=== PATIENT | male | born 1975 | race Hispanic/Latino ===

== ENCOUNTER 2019-04-02 23:31 | Inpatient (IN) | payer MEDICAID, OTHER ==
[~2019-04-02] VITALS: Ht 182.9 cm; Wt 98.0 kg
[2019-04-02] MEDS ORDERED: ASPIRIN 81MG TAB.CHEW ONE (23:43)
[2019-04-02] MEDS ORDERED: NITROGLYCERIN 0.4 MG SL TAB SL ONE (23:54)
[2019-04-02] MEDS ORDERED: ONDANSETRON HCL 4 MG/2 ML VIAL ONE (23:57)
[2019-04-02] MEDS ORDERED: MORPHINE SULFATE 4 MG/1ML SYG ONE (23:57)
[2019-04-02 23:59] LABS: BASOPHILS % (AUTO) 0.8 % (0.0-5.0); EOSINOPHILS % (AUTO) 2.8 % (0.0-8.0); HEMATOCRIT 49.6 % (42-54); LYMPHOCYTES % (AUTO) 32.1 % (21.0-51.0); MEAN CORPUSCULAR HEMOGLOBIN 29.7 pg (27.0-33.0); MEAN CORPUSCULAR HGB CONC 35.6 g/dL (32.0-36.0); MEAN CORPUSCULAR VOLUME 83.5 fL (79-99); MONOCYTES % (AUTO) 7.2 % (3.0-13.0); NEUTROPHILS % (AUTO) 57.1 % (40.0-77.0); PLATELET COUNT (AUTO) 203 K/uL (130-400); RED BLOOD CELL COUNT(AUTO) 5.94 MIL/uL (4.50-6.20); RED CELL DISTRIBUTION WIDTH 13.3 % (11.0-15.5); WHITE BLOOD COUNT (AUTO) 8.8 K/uL (4.8-10.8)
[2019-04-02] MEDS ORDERED: NITROGLYCERIN 50 MG/D5% WATER 1 BOT ONE (23:59)
[2019-04-02] MEDS ORDERED: METOPROLOL TARTRATE 1 MG/ML 5ML VIAL IV ONE (23:59)
[2019-04-03] VITALS (43 sets, daily range): BP systolic 108–170; BP diastolic 55–104
[2019-04-03 00:02] LABS: CREATININE 1.2 mg/dL (0.5-1.5); POTASSIUM 3.6 mmol/L (3.5-5.1)
[2019-04-03 00:04] LABS: INR 0.99 (0.85-1.15); PARTIAL THROMBOPLASTIN TIME 25.4 SEC (26.3-35.5); PROTHROMBIN TIME 10.4 SEC (9.6-11.6)
[2019-04-03] MEDS ORDERED: LIDOCAINE HCL 2% 20ML ONE ×2 (00:08→01:02)
[2019-04-03] MEDS ORDERED: NITROGLYCERIN 5 MG/ML 10 ML VIAL IV ONE (00:08)
[2019-04-03] MEDS ORDERED: IOHEXOL 350 MG/ML 100ML INFUS..BTL IV ONE (00:08)
[2019-04-03] MEDS ORDERED: IOHEXOL-350 50ML VIAL IV ONE (00:08)
[2019-04-03] MEDS ORDERED: BIVALIRUDIN 250 MG/VIAL IV ONE (00:11)
[2019-04-03 00:12] LABS: ALBUMIN 3.9 g/dL (3.5-5.0); BILIRUBIN,TOTAL 0.4 mg/dL (0.2-1.0); TOTAL PROTEIN, SERUM 7.6 g/dL (6.0-8.3)
[2019-04-03 00:33] LABS: B-TYPE NATRIURETIC PEPTIDE 86 pg/mL (0-100)
[2019-04-03] MEDS ORDERED: HEPARIN SODIUM 1000UNIT/ML 10ML VIAL ONE (00:58)
[2019-04-03] MEDS ORDERED: SODIUM CHLORIDE 0.9% 1000ML 1,000 ML IV ONE (01:20)
[2019-04-03] MEDS: ENALAPRIL MALEATE 5 MG TAB PO SCH ×3 (01:30→22:09)
[2019-04-03] MEDS: METOPROLOL TARTRATE 50 MG TAB PO SCH ×4 (01:30→18:18)
[2019-04-03] MEDS ORDERED: FUROSEMIDE 10 MG/ML 2ML VIAL ONE (01:34)
--- NOTE | 2019-04-03 02:10 | NUR ---
PT WAS RECEIVED FROM RESEARCH ENVIRONMENTAL ENGINEER AND PT HAS IMPELLA IN PLACE TO RIGHT FEMORAL (GROIN) AREA AND HAS TRIDIL DRIP AT 100MCG AND WILL START CARDENE DRIP TO KEEP SBP LESS THAN 150. PT WAS ACCOMPANIED BY RESEARCH ENVIRONMENTAL ENGINEER STAFF AND NATA THE IMPELLA RETAIL SUPPORT ASSOCIATE. PT WAS ADVISED OF THE PLAN OF CARE AND WILL ALLOW FAMILY MEMBERS TO COME IN TO SEE PT AFTER PT IS ASSESSED AND IMPELLA IS PRIMED PER PROTOCOL.
[2019-04-03] MEDS ORDERED: HEPARIN SODIUM 5000UNIT/ML 1ML VIAL ONE ×2 (02:15→12:32)
[2019-04-03] MEDS ORDERED: DEXTROSE 5%-WATER 500 ML IV ONE (02:16)
[2019-04-03] MEDS ORDERED: NICARDIPINE IN NACL, ISO-OSM 200 ML IV ONE (02:31)
[2019-04-03] MEDS ORDERED: MIDAZOLAM HCL 1 MG/ML 2ML VIAL IVP ONE (02:45)
--- NOTE | 2019-04-03 03:00 | NUR ---
PT HAS BEEN MEDICATED WITH MORPHINE SULFATE 2 MG IV AND PT STATES PAIN WAS 3 BUT PRESSURE WITH PAIN, ASKED IF PAIN WAS WORST THAN BEFORE AND HE STATED NO BUT HAS NOT GONE AWAY OR COMFORTABLE.
[2019-04-03] MEDS ORDERED: MORPHINE SULFATE 2 MG/ML 1ML SYG IM PRN (03:15)
[2019-04-03] MEDS ORDERED: MORPHINE SULFATE 2 MG/ML 1ML SYG ONE (03:17)
[2019-04-03 03:29] LABS: HEMATOCRIT 47.1 % (42-54); MEAN CORPUSCULAR HEMOGLOBIN 29.6 pg (27.0-33.0); MEAN CORPUSCULAR HGB CONC 35.3 g/dL (32.0-36.0); MEAN CORPUSCULAR VOLUME 83.9 fL (79-99); PLATELET COUNT (AUTO) 208 K/uL (130-400); RED BLOOD CELL COUNT(AUTO) 5.62 MIL/uL (4.50-6.20); RED CELL DISTRIBUTION WIDTH 13.2 % (11.0-15.5); WHITE BLOOD COUNT (AUTO) 10.7 K/uL (4.8-10.8)
[2019-04-03] MEDS: HEPARIN 25000 UNITS/250 ML D5W 250 ML IV SCH ×2 (03:43→08:20)
[2019-04-03 03:54] LABS: HEMOGLOBIN A1C 10.1 % (4.0-6.0)
[2019-04-03 03:57] LABS: INR 1.03 (0.85-1.15); PARTIAL THROMBOPLASTIN TIME 51.6 SEC (26.3-35.5); PROTHROMBIN TIME 10.8 SEC (9.6-11.6)
[2019-04-03 04:00] LABS: B-TYPE NATRIURETIC PEPTIDE 61 pg/mL (0-100)
--- NOTE | 2019-04-03 04:00 | NUR ---
PT IS RESTING COMFORTABLY AND V/S HAVE BEEN IMPROVED AFTER CARDENE WAS ADDED. TRIDIL DRIP HAS BEEN REDUCED TO 50 MCGS. AT BEDSIDE AND OTHER FAMILY MEMBERS HAVE GONE HOME.
[2019-04-03 04:08] LABS: ALBUMIN 3.7 g/dL (3.5-5.0); BILIRUBIN,TOTAL 0.8 mg/dL (0.2-1.0); MAGNESIUM 2.5 mg/dL (1.80-2.40); POTASSIUM 3.8 mmol/L (3.5-5.1); TOTAL PROTEIN, SERUM 7.2 g/dL (6.0-8.3)
[2019-04-03 04:10] LABS: TROPONIN I 3.16 ng/mL (0.00-0.06)
[2019-04-03] MEDS: NICARDIPINE IN NACL, ISO-OSM 200 ML IV PRN ×3 (05:50→19:26)
[2019-04-03] MEDS: ASPIRIN 81MG TAB.CHEW PO SCH (09:14)
[2019-04-03] MEDS: NITROGLYCERIN 50 MG/D5% WATER 250 BOT IV PRN (10:34)
[2019-04-03] MEDS ORDERED: HEPARIN SODIUM 5000UNIT/ML 1ML VIAL IV SCH (12:30)
[2019-04-03 13:06] LABS: TROPONIN I 277.26 ng/mL (0.00-0.06)
--- NOTE | 2019-04-03 14:09 | NUR ---
DC PLAN VISITED WITH PATIENT. PATIENT LIVES WITH SPOUSE. INDEPENDENT ABLE TO PERFORM ADL'S. PATIENT HAS NO SERVICES OR DME'S. FEELS SAFE TO RETURN HOME. INTERESTED IN PROVIDER SERVICES WILL GO BACK IN GIVE HIM LOW INCOME INFORMATION. PATIENT DOES NOT QUALIFY FOR PROVIDERS AT THIS TIME. NOT 63 NO INSURANCE NO MEDICAID. Addendum: 04/03/19 at 1410 by KAYCE PAPPAS RN CM Amended: Links added.
[2019-04-03] MEDS ORDERED: DEXTROSE 50%-WATER 50 ML DISP.SYRIN IV PRN (18:15)
[2019-04-03] MEDS ORDERED: INSULIN HUMULIN R 100 UNIT/ML 3ML ONE (18:15)
[2019-04-03] MEDS ORDERED: INSULIN HUMULIN R 100 UNIT/ML 3ML SQ SCH (18:15)
[2019-04-03] MEDS ORDERED: GLUCAGON 1MG KIT 1 MG ML IM PRN (18:15)
[2019-04-03] MEDS ORDERED: INSULIN GLARGINE 100 UNITS/ML 10 ML VIAL SQ SCH (21:30)
[2019-04-03] MEDS ORDERED: ATORVASTATIN CALCIUM 10 MG TABLET PO SCH (22:03)
[2019-04-03 22:10] LABS: MAGNESIUM 1.8 mg/dL (1.80-2.40); POTASSIUM 3.8 mmol/L (3.5-5.1)
[2019-04-04] VITALS (30 sets, daily range): BP systolic 109–142; BP diastolic 54–83
[2019-04-04] MEDS: METOPROLOL TARTRATE 50 MG TAB PO SCH ×4 (00:07→18:22)
[2019-04-04] MEDS: MAGNESIUM 2GM PREMIX 50ML 50 ML IV PRN (00:07)
[2019-04-04] MEDS: NITROGLYCERIN 50 MG/D5% WATER 250 BOT IV PRN (00:08)
[2019-04-04] MEDS ORDERED: MORPHINE SULFATE 2 MG/ML 1ML SYG IV PRN (01:15)
[2019-04-04 05:54] LABS: BASOPHILS % (AUTO) 0.6 % (0.0-5.0); EOSINOPHILS % (AUTO) 0.4 % (0.0-8.0); HEMATOCRIT 42.2 % (42-54); LYMPHOCYTES % (AUTO) 11.6 % (21.0-51.0); MEAN CORPUSCULAR HEMOGLOBIN 29.5 pg (27.0-33.0); MEAN CORPUSCULAR HGB CONC 34.5 g/dL (32.0-36.0); MEAN CORPUSCULAR VOLUME 85.5 fL (79-99); MONOCYTES % (AUTO) 8.6 % (3.0-13.0); NEUTROPHILS % (AUTO) 78.8 % (40.0-77.0); PLATELET COUNT (AUTO) 180 K/uL (130-400); RED BLOOD CELL COUNT(AUTO) 4.93 MIL/uL (4.50-6.20); RED CELL DISTRIBUTION WIDTH 13.5 % (11.0-15.5); WHITE BLOOD COUNT (AUTO) 16.1 K/uL (4.8-10.8)
[2019-04-04 06:26] LABS: MAGNESIUM 2.1 mg/dL (1.80-2.40); POTASSIUM 4.2 mmol/L (3.5-5.1)
[2019-04-04 06:39] LABS: B-TYPE NATRIURETIC PEPTIDE 388 pg/mL (0-100)
[2019-04-04] MEDS: INSULIN LISPRO 100 UNIT/ML 3ML SQ SCH ×6 (06:43→21:00)
[2019-04-04 07:10] LABS: TROPONIN I 96.67 ng/mL (0.00-0.06)
[2019-04-04] MEDS ORDERED: INSULIN LISPRO 100 UNIT/ML 3ML SQ SCH (07:30)
[2019-04-04] MEDS: HEPARIN SODIUM 5000 UNIT/ML 25,000 UNIT in DEXTROSE 5%-WATER 500 ML IJ SCH (08:17)
[2019-04-04] MEDS: FUROSEMIDE 20 MG TABLET PO SCH ×2 (09:06→16:18)
[2019-04-04] MEDS: ASPIRIN 81MG TAB.CHEW PO SCH (09:06)
[2019-04-04] MEDS: ENALAPRIL MALEATE 5 MG TAB PO SCH ×2 (09:06→21:27)
[2019-04-04] MEDS: HEPARIN 25000 UNITS/250 ML D5W 250 ML IV SCH (14:30)
--- NOTE | 2019-04-04 14:52 | NUR ---
Impella with alarm: Impella Position Unkown. Impella position waveform flatline. Impella flow control decreased to P2 from P6. Impella alarm resolved. Flow increased back to P6. Dr. Arturo Arce and Hema (Impella Rep) notified. No need for echo to be done to check position. Continue to monitor patient. Placement signal with reading of 127/87 (103) mm/hg. Motor current with reading of 654/483 (569) mA. Impella flow at 1.8 L/min.
[2019-04-04] MEDS: FAMOTIDINE/PF 20 MG/2 ML VIAL IV SCH (21:27)
[2019-04-04] MEDS: ATORVASTATIN CALCIUM 40 MG TABLET PO SCH (21:28)
[2019-04-04] MEDS: INSULIN GLARGINE 100 UNITS/ML 10 ML VIAL SQ SCH (21:33)
[2019-04-05] VITALS (24 sets, daily range): BP systolic 120–148; BP diastolic 68–86
[2019-04-05] MEDS: METOPROLOL TARTRATE 50 MG TAB PO SCH ×4 (01:07→18:17)
[2019-04-05 03:58] LABS: BASOPHILS % (AUTO) 0.8 % (0.0-5.0); EOSINOPHILS % (AUTO) 0.7 % (0.0-8.0); HEMATOCRIT 40.7 % (42-54); LYMPHOCYTES % (AUTO) 19.1 % (21.0-51.0); MEAN CORPUSCULAR HEMOGLOBIN 29.2 pg (27.0-33.0); MEAN CORPUSCULAR HGB CONC 34.3 g/dL (32.0-36.0); MONOCYTES % (AUTO) 9.4 % (3.0-13.0); PLATELET COUNT (AUTO) 135 K/uL (130-400); RED CELL DISTRIBUTION WIDTH 13.6 % (11.0-15.5); WHITE BLOOD COUNT (AUTO) 11.2 K/uL (4.8-10.8)
[2019-04-05 04:34] LABS: B-TYPE NATRIURETIC PEPTIDE 76 pg/mL (0-100)
[2019-04-05 04:37] LABS: CREATININE 0.8 mg/dL (0.5-1.5); MAGNESIUM 1.8 mg/dL (1.80-2.40)
[2019-04-05 04:40] LABS: TROPONIN I 38.89 ng/mL (0.00-0.06)
[2019-04-05] MEDS: MAGNESIUM 2GM PREMIX 50ML 50 ML IV PRN (05:36)
[2019-04-05] MEDS: INSULIN LISPRO 100 UNIT/ML 3ML SQ SCH ×7 (06:27→20:25)
[2019-04-05] MEDS: ASPIRIN 81MG TAB.CHEW PO SCH (08:38)
[2019-04-05] MEDS: FUROSEMIDE 20 MG TABLET PO SCH ×2 (08:38→16:58)
[2019-04-05] MEDS: FAMOTIDINE/PF 20 MG/2 ML VIAL IV SCH ×2 (08:38→20:46)
[2019-04-05] MEDS: ENALAPRIL MALEATE 5 MG TAB PO SCH (09:41)
--- NOTE | 2019-04-05 10:40 | NUR ---
DR. Columba BABIN IN TO SEE PT. PLAN OF CARE DISCUSSED. NEW ORDERS RECEIVED AND NOTED.
[2019-04-05] MEDS: ENALAPRIL MALEATE 10 MG TABLET PO SCH ×2 (10:45→20:46)
[2019-04-05] MEDS: NITROGLYCERIN 1GM/1 INCH PACKET TD SCH ×2 (10:57→22:59)
[2019-04-05] MEDS: HEPARIN SODIUM 5000 UNIT/ML 25,000 UNIT in DEXTROSE 5%-WATER 500 ML IJ SCH (16:50)
[2019-04-05] MEDS: HEPARIN 25000 UNITS/250 ML D5W 250 ML IV SCH (16:57)
[2019-04-05] MEDS: ATORVASTATIN CALCIUM 40 MG TABLET PO SCH (20:47)
[2019-04-05] MEDS: INSULIN GLARGINE 100 UNITS/ML 10 ML VIAL SQ SCH (20:54)
[2019-04-06] VITALS (24 sets, daily range): BP systolic 120–160; BP diastolic 62–95
[2019-04-06] MEDS: METOPROLOL TARTRATE 50 MG TAB PO SCH ×5 (00:44→23:46)
[2019-04-06 03:52] LABS: HEMATOCRIT 41.7 % (42-54); MEAN CORPUSCULAR HEMOGLOBIN 29.1 pg (27.0-33.0); MEAN CORPUSCULAR HGB CONC 34.2 g/dL (32.0-36.0); MEAN CORPUSCULAR VOLUME 85.2 fL (79-99); PLATELET COUNT (AUTO) 118 K/uL (130-400); RED BLOOD CELL COUNT(AUTO) 4.89 MIL/uL (4.50-6.20); RED CELL DISTRIBUTION WIDTH 13.1 % (11.0-15.5); WHITE BLOOD COUNT (AUTO) 12.2 K/uL (4.8-10.8)
[2019-04-06 04:26] LABS: CREATININE 0.8 mg/dL (0.5-1.5); MAGNESIUM 1.9 mg/dL (1.80-2.40); POTASSIUM 4.1 mmol/L (3.5-5.1)
[2019-04-06 04:29] LABS: EOSINOPHILS % (MANUAL) 1 % (1-6); LYMPHOCYTES % (MANUAL) 18 % (22-44); MAN.DIFF COMMENT-IMPRESSION MANUAL DIFFERENTIAL; MONOCYTES % (MANUAL) 8 % (2-9); SEGMENTED NEUTROPHILS % 73 % (40-70)
[2019-04-06 04:43] LABS: B-TYPE NATRIURETIC PEPTIDE 132 pg/mL (0-100)
[2019-04-06 05:01] LABS: TROPONIN I 28.87 ng/mL (0.00-0.06)
[2019-04-06] MEDS: INSULIN LISPRO 100 UNIT/ML 3ML SQ SCH ×7 (07:30→21:00)
--- NOTE | 2019-04-06 07:30 | NUR ---
DR. Columba BABIN IN TO SEE PT. PLAN OF CARE DISCUSSED. PT CONTINUES ON IMPELLA P6 LEVEL WITH FLOW 1.7 L/MIN. SITE TO RIGHT FEMORAL INTACT. NO HEMATOMA NOTED. PEDAL PULSES STRONG AND PALPABLE. PT OCCASIONALLY MOVING REMINDED OF IMPORTANCE OF REMAINING FLAT. VS NOTED ON COMPUTER. CONTINUES ON HEPARIN DRIP PER PROTOCOL. VS NOTED IN EMR. CONTINUE TO MONITOR PT.
[2019-04-06] MEDS: FAMOTIDINE/PF 20 MG/2 ML VIAL IV SCH ×2 (08:28→21:15)
[2019-04-06] MEDS: FUROSEMIDE 20 MG TABLET PO SCH ×2 (08:28→16:47)
[2019-04-06] MEDS: ASPIRIN 81MG TAB.CHEW PO SCH (08:28)
--- NOTE | 2019-04-06 10:50 | NUR ---
PT COUGHED UP ABOUT 10 ML OF BRIGHT RED BLOOD, BLOOD NOTED ON RIGHT NOSTRIL. OXYGEN REMOVED, PRESSURE APPLIED. DR. Chun BABIN CALLED AND NOTIFIED. HEPARIN DRIP DECREASED TO 1200 UNITS/HR ORDERED.
--- NOTE | 2019-04-06 11:12 | NUR ---
DR. AVILES IN TO SEE PT. PLAN OF CARE DISCUSSED. PLAN FOR SURGERY SUNDAY BY DR. MCCLENDON. PT IN AGREEMENT. ALL QUESTIONS ANSWERED.
[2019-04-06] MEDS: ENALAPRIL MALEATE 10 MG TABLET PO SCH ×2 (11:33→20:57)
[2019-04-06] MEDS: NITROGLYCERIN 1GM/1 INCH PACKET TD SCH ×2 (11:33→21:48)
[2019-04-06] MEDS: HEPARIN 25000 UNITS/250 ML D5W 250 ML IV SCH (13:00)
[2019-04-06 17:02] LABS: ABG BASE EXCESS 2.2 mmol/L (-2.0-3.0); ABG HCO3 26.1 mmol/L (21.0-28.0); ABG OXYGEN SATURATION 95.5 % (95.0-99.0); ABG PCO2 39 mmHg (35-48)
[2019-04-06] MEDS: ATORVASTATIN CALCIUM 40 MG TABLET PO SCH (21:15)
[2019-04-06] MEDS: INSULIN GLARGINE 100 UNITS/ML 10 ML VIAL SQ SCH (21:50)
[2019-04-07] VITALS (30 sets, daily range): BP systolic 100–213; BP diastolic 60–95
[2019-04-07 04:06] LABS: BASOPHILS % (AUTO) 0.5 % (0.0-5.0); EOSINOPHILS % (AUTO) 1.1 % (0.0-8.0); HEMATOCRIT 41.4 % (42-54); LYMPHOCYTES % (AUTO) 13.1 % (21.0-51.0); MEAN CORPUSCULAR HEMOGLOBIN 29.1 pg (27.0-33.0); MEAN CORPUSCULAR HGB CONC 34.7 g/dL (32.0-36.0); MEAN CORPUSCULAR VOLUME 83.8 fL (79-99); MONOCYTES % (AUTO) 10.1 % (3.0-13.0); NEUTROPHILS % (AUTO) 75.2 % (40.0-77.0); NUCLEATED RED BLOOD CELLS 0.1 % (0.0-0.19); PLATELET COUNT (AUTO) 107 K/uL (130-400); RED BLOOD CELL COUNT(AUTO) 4.94 MIL/uL (4.50-6.20); RED CELL DISTRIBUTION WIDTH 13.3 % (11.0-15.5); WHITE BLOOD COUNT (AUTO) 9.9 K/uL (4.8-10.8)
[2019-04-07 04:45] LABS: CREATININE 0.7 mg/dL (0.5-1.5); MAGNESIUM 1.7 mg/dL (1.80-2.40)
[2019-04-07 04:49] LABS: TROPONIN I 21.51 ng/mL (0.00-0.06)
[2019-04-07 05:01] LABS: B-TYPE NATRIURETIC PEPTIDE 233 pg/mL (0-100)
[2019-04-07] MEDS: MAGNESIUM 2GM PREMIX 50ML 50 ML IV PRN ×2 (05:47→20:12)
[2019-04-07] MEDS: METOPROLOL TARTRATE 50 MG TAB PO SCH ×2 (05:48→12:30)
[2019-04-07] MEDS ORDERED: POTASSIUM CHLORIDE 10% ELIXIR 20 MEQ/15 ML UDCUP PO PRN (06:00)
[2019-04-07] MEDS ORDERED: LIDOCAINE HCL-MPF 1% 2ML VIAL IV PRN (06:00)
[2019-04-07] MEDS ORDERED: LIDOCAINE HCL-MPF 1% 2ML VIAL ONE (06:01)
[2019-04-07] MEDS ORDERED: POTASSIUM CHLORIDE 20MEQ/100ML 100 ML IV ONE (06:03)
[2019-04-07] MEDS: INSULIN LISPRO 100 UNIT/ML 3ML SQ SCH ×4 (07:15→10:41)
--- NOTE | 2019-04-07 08:00 | NUR ---
AM NOTE Awake, alert, oriented x3. Denies chest pain. 13 Fr. Impella device to right femoral, no hematoma noted to site, refer to flowsheet. Heparin infusions stopped including purge fluid as ordered by MD. NPO for pending CABG today, instructed to remain bedrest, verbalized understanding. Sinus rhythm in 70s. Side rials up. Call braga within reach.
[2019-04-07] MEDS: FAMOTIDINE/PF 20 MG/2 ML VIAL IV SCH ×2 (08:07→20:28)
[2019-04-07] MEDS: POTASSIUM CHLORIDE 20MEQ/100ML 100 ML IV PRN ×4 (08:07→23:20)
[2019-04-07] MEDS: ENALAPRIL MALEATE 10 MG TABLET PO SCH (08:08)
[2019-04-07] MEDS: ASPIRIN 81MG TAB.CHEW PO SCH (08:08)
[2019-04-07] MEDS: FUROSEMIDE 20 MG TABLET PO SCH (08:08)
[2019-04-07] MEDS ORDERED: DEXTROSE 5%-WATER 500 ML IV ONE (09:59)
[2019-04-07 10:21] LABS: ABG BASE EXCESS 3.1 mmol/L (-2.0-3.0); ABG HCO3 26.5 mmol/L (21.0-28.0); ABG OXYGEN SATURATION 96.4 % (95.0-99.0); ABG PCO2 37 mmHg (35-48)
[2019-04-07] MEDS: NITROGLYCERIN 1GM/1 INCH PACKET TD SCH (10:21)
[2019-04-07] MEDS ORDERED: OCTYL 2-CYANOACRYLATE 1 EACH TP ONE (12:15)
[2019-04-07] MEDS ORDERED: EPINEPHRINE 1 MG/ML 30ML VIAL IJ ONE (12:15)
[2019-04-07] MEDS ORDERED: PAPAVERINE HCL 30 MG/ML 2ML VIAL ONE (12:15)
[2019-04-07] MEDS ORDERED: NITROGLYCERIN 50 MG/D5% WATER 1 BOT ONE (12:16)
[2019-04-07] MEDS ORDERED: BACITRACIN 50,000 UNIT VIAL ONE (12:16)
[2019-04-07] MEDS ORDERED: CEFAZOLIN SODIUM 1 GM VIAL IVP PRN (13:00)
[2019-04-07 13:09] LABS: POTASSIUM 4.4 mmol/L (3.5-5.1)
[2019-04-07] MEDS ORDERED: AMINOCAPROIC ACID 250 MG/ML 20 ML VIAL IV ONE (14:18)
[2019-04-07] MEDS ORDERED: HEPARIN SODIUM 1000UNIT/ML 10ML VIAL ONE (14:18)
[2019-04-07] MEDS ORDERED: LIDOCAINE PF 2% 5ML ABBOJECT ONE ×2 (14:18)
[2019-04-07] MEDS ORDERED: PROPOFOL 10 MG/ML 20ML VIAL IV ONE (14:18)
[2019-04-07] MEDS ORDERED: PROTAMINE SULFATE 10 MG/ML 25ML VIAL IV ONE (14:18)
[2019-04-07] MEDS ORDERED: FENTANYL CITRATE PF 50 MCG/1 ML 20ML VIAL IJ ONE (14:18)
[2019-04-07] MEDS ORDERED: EPINEPHRINE 1 MG/ML AMPULE ONE (14:18)
[2019-04-07] MEDS ORDERED: NOREPINEPHRINE BITARTRATE 1 MG/1 ML ML IV ONE (14:18)
[2019-04-07] MEDS ORDERED: ROCURONIUM 10MG/1ML SYR 10 MG/ML ML ONE ×2 (14:18→17:59)
[2019-04-07] MEDS ORDERED: MIDAZOLAM HCL 1 MG/ML 5ML VIAL ONE (14:18)
[2019-04-07] MEDS ORDERED: ESMOLOL HCL 10 MG/ML 10 ML VIAL ONE ×2 (14:18→14:19)
[2019-04-07] MEDS ORDERED: ETOMIDATE 2 MG/ML 10 ML VIAL ONE (14:19)
[2019-04-07] MEDS ORDERED: AMIODARONE HCL 50 MG/ML 3 ML VIAL ONE (14:19)
[2019-04-07] MEDS ORDERED: GLYCOPYRROLATE 1 MG/5 ML SYRINGE ONE (14:22)
--- NOTE | 2019-04-07 14:55 | NUR ---
OR Pt taken to OR by BIN Rodriguez, BIN Hairston, and Sr. Harding. Ancef IV manager talent acquisition given to BIN Rodriguez. Pt in no distress. All belongings given to pt at bedside.
[2019-04-07 15:47] LABS: ABG BASE EXCESS 0.9 mmol/L (-2.0-3.0); ABG HCO3 24.8 mmol/L (21.0-28.0); ABG OXYGEN SATURATION 99.4 % (95.0-99.0); ABG PCO2 37 mmHg (35-48)
[2019-04-07] MEDS ORDERED: SODIUM BICARB 50MEQ 50ML VIAL ONE (16:18)
[2019-04-07] MEDS ORDERED: SODIUM CHLORIDE 0.9% 500ML 500 ML IV SCH (16:50)
[2019-04-07] MEDS ORDERED: TRAMADOL HCL 50 MG TABLET PO PRN ×2 (17:00)
[2019-04-07] MEDS ORDERED: AMINOCAPROIC ACID 15,000 MG in SODIUM CHLORIDE 0.9% 250 ML IV SCH (17:00)
[2019-04-07] MEDS ORDERED: MORPHINE SULFATE 4 MG/1ML SYG IV PRN (17:00)
[2019-04-07] MEDS ORDERED: ALBUMIN (HUMAN) 5% 250 ML IV PRN (17:00)
[2019-04-07] MEDS ORDERED: ACETAMINOPHEN 325 MG TAB PO PRN ×2 (17:00)
[2019-04-07] MEDS ORDERED: EPINEPHRINE 8 MG in DEXTROSE 5%-WATER 250 ML IV PRN (17:00)
[2019-04-07] MEDS ORDERED: POTASSIUM PHOS 15 mMOL+NS250ML 250 ML IV PRN (17:00)
[2019-04-07] MEDS ORDERED: ACETAMINOPHEN 650 MG SUPPOSITORY RC PRN (17:00)
[2019-04-07] MEDS ORDERED: DEXTROSE 50%-WATER 50 ML DISP.SYRIN IV PRN (17:00)
[2019-04-07] MEDS ORDERED: SODIUM CHLORIDE 0.9% 250 ML IV PRN (17:00)
[2019-04-07] MEDS ORDERED: ONDANSETRON HCL 4 MG/2 ML VIAL IV PRN (17:00)
[2019-04-07] MEDS ORDERED: NITROGLYCERIN 50 MG/D5% WATER 250 BOT IV SCH (17:00)
[2019-04-07] MEDS ORDERED: SODIUM CHLORIDE 0.9% 1000ML 1,000 ML IV SCH (17:00)
[2019-04-07] MEDS ORDERED: SODIUM CHLORIDE 0.9% 10 ML VIAL IVP PRN (17:00)
[2019-04-07] MEDS ORDERED: INSULIN REGULAR, HUMAN 3ML 100 UNIT in SODIUM CHLORIDE 0.9% 99 ML IV SCH ×2 (17:00)
[2019-04-07] MEDS ORDERED: MORPHINE SULFATE 2 MG/ML 1ML SYG IV PRN (17:00)
[2019-04-07] MEDS ORDERED: NOREPINEPHRINE 4MG/NS 250ML 250 ML IV PRN (17:00)
[2019-04-07] MEDS ORDERED: GLUCAGON 1MG KIT 1 MG ML IM PRN (17:00)
[2019-04-07 17:18] LABS: ABG BASE EXCESS 0.5 mmol/L (-2.0-3.0); ABG HCO3 24.3 mmol/L (21.0-28.0); ABG PCO2 37 mmHg (35-48)
[2019-04-07 17:57] LABS: ABG BASE EXCESS -4.6 mmol/L (-2.0-3.0); ABG HCO3 20.1 mmol/L (21.0-28.0); ABG OXYGEN SATURATION 98.8 % (95.0-99.0); ABG PCO2 36 mmHg (35-48)
--- NOTE | 2019-04-07 18:30 | NUR ---
POST OP Received pt immediately post op to room 212. Remains sedated/intubated. Vent settings as recorded. VS/hemodynamics as recorded. Received pt on IV levophed gtt @3mcg/min, epinephrine gtt @0.05mcg/kg/min, NTG gtt @5mcg/min, amicar @50ml/hr. IV levophed gtt turned off by shortly after arrival to CVR. IV NTG gtt titrated to 10mcg/min. Right IJ CVP line in use. Left radial arterial line patent with acceptable waveform. Sternal drsg clean, dry. Abd soft - absent bowel sounds. CT's x2 patent - sanguineous drainage - Y connected to single atrium. No evidence of air leak. CT's to 20cm suction. Right femoral Impella catheter remains in place - refer to separate flow sheet for required documentation. Right groin without bleeding, oozing or hematoma. Pedal pulses are palpable. KAYODE bandage/surgical drsg to LLE. F/C patent - clear yellow urine. in to see pt at approximately 1845 - order received to wean Impella flow rate as tolerated by pt. Impella flow now at P4. Will observe pt tolerance. Care of pt endorsed to 7P RN.
[2019-04-07 19:31] LABS: ABG HCO3 18.8 mmol/L (21.0-28.0); ABG OXYGEN SATURATION 93.3 % (95.0-99.0); ABG PCO2 35 mmHg (35-48)
[2019-04-07] MEDS: SODIUM BICARB 50MEQ 50ML VIAL IV PRN ×3 (19:34→19:36)
[2019-04-07] MEDS: PROPOFOL 1000 MG/100 ML 100 ML IV PRN ×2 (19:45→23:59)
[2019-04-07 19:52] LABS: HEMATOCRIT 40.3 % (42-54); MEAN CORPUSCULAR HEMOGLOBIN 29.1 pg (27.0-33.0); MEAN CORPUSCULAR HGB CONC 33.9 g/dL (32.0-36.0); MEAN CORPUSCULAR VOLUME 85.8 fL (79-99); PLATELET COUNT (AUTO) 125 K/uL (130-400); RED CELL DISTRIBUTION WIDTH 13.3 % (11.0-15.5); WHITE BLOOD COUNT (AUTO) 19.4 K/uL (4.8-10.8)
[2019-04-07 20:01] LABS: CREATININE 0.9 mg/dL (0.5-1.5); INR 1.15 (0.85-1.15); MAGNESIUM 1.5 mg/dL (1.80-2.40); PARTIAL THROMBOPLASTIN TIME 24.3 SEC (26.3-35.5); PHOSPHORUS 4.3 mg/dL (2.5-4.9); POTASSIUM 3.3 mmol/L (3.5-5.1)
[2019-04-07 20:50] LABS: ABG HCO3 23.9 mmol/L (21.0-28.0); ABG OXYGEN SATURATION 97.6 % (95.0-99.0); ABG PCO2 37 mmHg (35-48)
[2019-04-07] MEDS: CALCIUM GLUCONATE 1 GM in SODIUM CHLORIDE 0.9% 50 ML IV PRN ×2 (21:48→23:20)
[2019-04-07] MEDS: CEFAZOLIN SODIUM 1 GM VIAL IV SCH (22:05)
[2019-04-07 23:17] LABS: ABG BASE EXCESS 1.5 mmol/L (-2.0-3.0); ABG OXYGEN SATURATION 98.1 % (95.0-99.0); ABG PCO2 40 mmHg (35-48)
[2019-04-08] VITALS (43 sets, daily range): BP systolic 96–170; BP diastolic 62–87
[2019-04-08] MEDS: POTASSIUM CHLORIDE 20MEQ/100ML 100 ML IV PRN ×2 (00:18→02:09)
[2019-04-08 02:07] LABS: ABG BASE EXCESS 1.4 mmol/L (-2.0-3.0); ABG HCO3 24.9 mmol/L (21.0-28.0); ABG PCO2 36 mmHg (35-48)
[2019-04-08] MEDS ORDERED: CALCIUM GLUCONATE 1 GM/10 ML VIAL IV ONE ×2 (02:09→04:58)
[2019-04-08] MEDS: CALCIUM GLUCONATE 1 GM in SODIUM CHLORIDE 0.9% 50 ML IV PRN ×2 (02:09→05:00)
[2019-04-08 03:27] LABS: ABG BASE EXCESS 3.2 mmol/L (-2.0-3.0); ABG HCO3 27.6 mmol/L (21.0-28.0); ABG OXYGEN SATURATION 98.3 % (95.0-99.0); ABG PCO2 42 mmHg (35-48)
--- NOTE | 2019-04-08 03:35 | NUR ---
EXTUBATION PT TOLERATED WEANING WELL ABG WITH PARAMETERS. PT WITH GOOD HAND LADIES SUIT OPERATOR AND ABLE TO LIFT HEAD AND HOLD. PT ABLE TO ACHIEVE NIF -34.7 AND VC 1269. PT EXTUBATED AND PLACED ON 40% CAFM PT EDUCATED TO TAKE SLOW DEEP BREATHS. WILL CONTINUE TO MONITOR.
--- NOTE | 2019-04-08 03:52 | NUR ---
EPI EPI WEANED OFF AT THIS TIME ASBP 170'S. NITRO INCREASED TO 20MCG/MIN WILL CONTINUE TO MONITOR.
[2019-04-08 04:26] LABS: HEMATOCRIT 38.4 % (42-54); MEAN CORPUSCULAR HEMOGLOBIN 29.7 pg (27.0-33.0); MEAN CORPUSCULAR VOLUME 84.9 fL (79-99); PLATELET COUNT (AUTO) 101 K/uL (130-400); RED BLOOD CELL COUNT(AUTO) 4.52 MIL/uL (4.50-6.20); RED CELL DISTRIBUTION WIDTH 13.1 % (11.0-15.5); WHITE BLOOD COUNT (AUTO) 13.1 K/uL (4.8-10.8)
[2019-04-08 04:44] LABS: ABG BASE EXCESS 3.7 mmol/L (-2.0-3.0); ABG HCO3 28.3 mmol/L (21.0-28.0); ABG OXYGEN SATURATION 98.8 % (95.0-99.0); ABG PCO2 42 mmHg (35-48)
[2019-04-08 04:46] LABS: INR 1.14 (0.85-1.15); PARTIAL THROMBOPLASTIN TIME 27.5 SEC (26.3-35.5); PROTHROMBIN TIME 11.9 SEC (9.6-11.6)
[2019-04-08 04:55] LABS: CREATININE 0.8 mg/dL (0.5-1.5); MAGNESIUM 1.8 mg/dL (1.80-2.40); PHOSPHORUS 2.6 mg/dL (2.5-4.9); POTASSIUM 4.1 mmol/L (3.5-5.1)
[2019-04-08] MEDS: MAGNESIUM 2GM PREMIX 50ML 50 ML IV PRN (05:00)
[2019-04-08] MEDS ORDERED: PHARMACY COMMUNICATION MISC SCH (05:15)
[2019-04-08] MEDS: CEFAZOLIN SODIUM 1 GM VIAL IV SCH ×2 (05:46→15:46)
--- NOTE | 2019-04-08 06:50 | NUR ---
ASSESSMENT Arousable with verbal stimulation. Oriented and appropriate. SR/ST on tele. VS as recorded. IV NTG gtt @15mcg/min. Denies acute chest pain or pressure. Reports incisional pain at a tolerable level. Right IJ CVP line in ues. Radial arterial line patent. Placed on NC O2 - will monitor pt tolerance. Diminished bibasilar breath sounds. Supine position maintained secondary to Impella catheter to RFA. Right groin healthy without evidence of bleeding/oozing or hematoma. Pedal pulses are palpable. SCD's in use to BLE's. CT's patent. Abd soft. Denies nausea. Assessment completed/recorded.
--- NOTE | 2019-04-08 07:52 | NUR ---
STATUS Sleeping soundly. Respirations are even, non-labored. ST on tele. VS maintained. No evidence of distress.
--- NOTE | 2019-04-08 09:23 | NUR ---
PT CARE Impella catheter removed by . Manual pressure applied to site by caregiver x45min. Hemostasis obtained. No bleeding, oozing or hematoma noted after pressure applied. Pressure drsg applied to site. Pedal pulses remain palpable. Pt denies pain to site. BLE's warm to touch. Pt repositioned for comfort. HOB @10-degrees. Pt aware of ongoing activity restrictions post removal of Impella catheter. No complaints voiced by pt.
--- NOTE | 2019-04-08 10:59 | NUR ---
TRANSFER Transferred by bed to room 210. Needed items placed within pt's reach.
[2019-04-08] MEDS: FAMOTIDINE/PF 20 MG/2 ML VIAL IV SCH ×2 (12:38→20:11)
--- NOTE | 2019-04-08 15:06 | NUR ---
11:00 Hold PT EVALUATION PER BIN FRAZIER Addendum: 04/08/19 at 1510 by KALEE CHEN PT PT Amended: Links added.
--- NOTE | 2019-04-08 17:24 | NUR ---
DC PLAN PATIENT S/P CABG 04/07. PLAN TO DC HOME. Addendum: 04/08/19 at 1725 by KAYCE PAPPAS RN CM Amended: Links added.
[2019-04-08] MEDS ORDERED: METOPROLOL TARTRATE 25 MG TAB PO SCH (17:30)
[2019-04-08] MEDS ORDERED: METOPROLOL TARTRATE 25 MG TAB ONE (17:51)
--- NOTE | 2019-04-08 18:51 | NUR ---
Nutrition Intervention: Nutrition screen based on LOS x 6 days. Pt. S/P CABG(04/07/19). Pt. on Clear Liquid No Conc Sweets CVR diet. Pt. reports only wants to drink water; states not able to tolerate other liquids at this time. Labs reviewed(Alb 3.7, HgbA1c 10.1%). LBM: 04/07/19. Attempted to educate pt. on diet but pt. stated not up for education at this time. Recommendations: 1) Rec. advance diet as tolerated to 75gm CCD Heart Healthy. 2) Continue to monitor pt's nutritional status. 3) Consult RD as nutrition concerns arise. Addendum: 04/08/19 at [address] Amended: Links added.
--- NOTE | 2019-04-08 19:14 | NUR ---
HAND OFF REPORT GIVEN TO NANCY STEWARD Addendum: 04/08/19 at 1917 by BRIDGETTE WIN RN RN SUMMARY OF CARE- I ASSUMED CARE OF PT THIS AFTERNOON FROM CVR. PT WAS SEEN BY DR MCCLENDON THIS AM. IMPELLA CATH REMOVED FROM RT GROIN- NO HEMATOMA/BLEEDING. NTG DRIP WEANING IN PROGRESS. DR BABIN ROUNDED AND GAVE ORDERS. DR MCCLENDON WAS INFORMED OF DR BABIN ORDERS AND HE CHANGED DOSING ON METOPROLOL. PT REMAINED STABLE AND HAD NO ACUTE ISSUES ENCOUNTERED
[2019-04-08] MEDS: ATORVASTATIN CALCIUM 20 MG TABLET PO SCH (20:11)
[2019-04-09] VITALS (69 sets, daily range): BP systolic 102–175; BP diastolic 57–100
[2019-04-09] MEDS ORDERED: METOPROLOL TARTRATE 25 MG TAB ONE (00:21)
[2019-04-09 04:26] LABS: CREATININE 0.7 mg/dL (0.5-1.5); POTASSIUM 4.1 mmol/L (3.5-5.1)
[2019-04-09 04:47] LABS: HEMATOCRIT 34.5 % (42-54); MEAN CORPUSCULAR HEMOGLOBIN 28.8 pg (27.0-33.0); MEAN CORPUSCULAR VOLUME 84.6 fL (79-99); PLATELET COUNT (AUTO) 122 K/uL (130-400); RED BLOOD CELL COUNT(AUTO) 4.07 MIL/uL (4.50-6.20); RED CELL DISTRIBUTION WIDTH 12.9 % (11.0-15.5); WHITE BLOOD COUNT (AUTO) 14.5 K/uL (4.8-10.8)
[2019-04-09] MEDS: POTASSIUM CHLORIDE 20MEQ/100ML 100 ML IV PRN (06:17)
[2019-04-09] MEDS: FAMOTIDINE/PF 20 MG/2 ML VIAL IV SCH ×2 (08:18→20:17)
[2019-04-09] MEDS: ASPIRIN 325MG EC TAB 325 MG TABLET.DR PO SCH (08:18)
[2019-04-09] MEDS ORDERED: METOPROLOL TARTRATE 25 MG TAB PO SCH ×2 (09:00→21:00)
[2019-04-09] MEDS ORDERED: FUROSEMIDE 10 MG/ML 4ML VIAL IV SCH (13:01)
--- NOTE | 2019-04-09 15:33 | NUR ---
RD Follow Up Pt tolerance to CVR-Clear Liquid improving compared to yesterday. Pt reports no appetite but is able to consume water okay, however, feels full with gelatin. Pt states will keep trying to eat more. RD provided Heart Healthy Diet and Diabetes Mellitus Diet education. RD reviewed reference materials with Pt and Pt's . RD discussed Pt "problem" foods/beverages and conducted motivational interviewing to encourage Pt to adhere to healthier alternatives. Pt and SO with questions. RD answered all questions. Pt and verbalized understanding. RD encouraged to notify as additional questions or concerns arise. Pt LBM 04/07/19. Pt monitored labs: Glu 149, Ca 8.3, Hgb 11.7 (declining trend), Hct 34.5. Recommend to advance diet as tolerated to Heart healthy, 75gm CCD. RD to continue to monitor. Please notify RD as nutritional concerns arise. Thank you. Addendum: 04/09/19 at [address] Amended: Links added.
--- NOTE | 2019-04-09 15:40 | NUR ---
Diet Education RD provided Heart Healthy Diet and Diabetes Mellitus Diet education. RD reviewed reference materials with Pt and Pt's . RD discussed Pt "problem" foods/beverages and conducted motivational interviewing to encourage Pt to adhere to healthier alternatives. Pt and SO with questions. RD answered all questions. Pt and verbalized understanding. RD encouraged to notify as additional questions or concerns arise. Addendum: 04/09/19 at [address] Amended: Links added.
[2019-04-09] MEDS: FUROSEMIDE 20 MG TABLET PO SCH (17:32)
[2019-04-09] MEDS: ATORVASTATIN CALCIUM 20 MG TABLET PO SCH (20:18)
[2019-04-09] MEDS ORDERED: AMIODARONE HCL 200 MG TABLET PO SCH (21:00)
[2019-04-10] VITALS (26 sets, daily range): BP systolic 90–177; BP diastolic 38–100
[2019-04-10 04:48] LABS: HEMATOCRIT 31.9 % (42-54); MEAN CORPUSCULAR HEMOGLOBIN 29.8 pg (27.0-33.0); MEAN CORPUSCULAR VOLUME 85.1 fL (79-99); PLATELET COUNT (AUTO) 137 K/uL (130-400); RED BLOOD CELL COUNT(AUTO) 3.74 MIL/uL (4.50-6.20); RED CELL DISTRIBUTION WIDTH 12.8 % (11.0-15.5); WHITE BLOOD COUNT (AUTO) 10.6 K/uL (4.8-10.8)
[2019-04-10 04:57] LABS: CREATININE 0.7 mg/dL (0.5-1.5); POTASSIUM 3.7 mmol/L (3.5-5.1)
[2019-04-10] MEDS: POTASSIUM CHLORIDE 20MEQ/100ML 100 ML IV PRN (05:31)
--- NOTE | 2019-04-10 06:29 | NUR ---
Potassium level 3.7. Replacement in progress. Pt up in cardiac chair after bath. No c/o pain, sob.
[2019-04-10] MEDS: ASPIRIN 325MG EC TAB 325 MG TABLET.DR PO SCH (08:15)
[2019-04-10] MEDS: FUROSEMIDE 20 MG TABLET PO SCH ×2 (08:15→16:01)
[2019-04-10] MEDS: AMIODARONE HCL 200 MG TABLET PO SCH (08:16)
[2019-04-10] MEDS: CLOPIDOGREL BISULFATE 75 MG TAB PO SCH (08:16)
[2019-04-10] MEDS: METOPROLOL TARTRATE 25 MG TAB PO SCH ×2 (08:16→22:15)
[2019-04-10] MEDS: LISINOPRIL 5 MG TABLET PO SCH (08:16)
[2019-04-10] MEDS: FAMOTIDINE/PF 20 MG/2 ML VIAL IV SCH ×2 (08:16→22:15)
[2019-04-10] MEDS: INSULIN HUMULIN R 100 UNIT/ML 3ML SQ SCH ×3 (11:30→20:48)
[2019-04-10] MEDS: ATORVASTATIN CALCIUM 20 MG TABLET PO SCH (22:15)
[2019-04-11] VITALS (7 sets, daily range): BP systolic 111–144; BP diastolic 72–89
[2019-04-11 05:11] LABS: HEMATOCRIT 31.9 % (42-54); MEAN CORPUSCULAR HEMOGLOBIN 29.7 pg (27.0-33.0); MEAN CORPUSCULAR HGB CONC 35.1 g/dL (32.0-36.0); MEAN CORPUSCULAR VOLUME 84.7 fL (79-99); PLATELET COUNT (AUTO) 167 K/uL (130-400); RED BLOOD CELL COUNT(AUTO) 3.76 MIL/uL (4.50-6.20); RED CELL DISTRIBUTION WIDTH 13.3 % (11.0-15.5); WHITE BLOOD COUNT (AUTO) 8.1 K/uL (4.8-10.8)
[2019-04-11 06:06] LABS: CREATININE 0.8 mg/dL (0.5-1.5); POTASSIUM 3.9 mmol/L (3.5-5.1)
[2019-04-11] MEDS: INSULIN HUMULIN R 100 UNIT/ML 3ML SQ SCH ×4 (06:16→21:00)
[2019-04-11] MEDS: POTASSIUM CHLORIDE 20MEQ/100ML 100 ML IV PRN (06:47)
--- NOTE | 2019-04-11 08:15 | NUR ---
CHEST TUBES X 2 REMOVED INTACT-SUTURES TIED AND COVERED WITH OPSITE 4X4/VASELINE GAUZE. GREENBERG CATH REMOVED INTACT. PLAN OF CARE DISCUSSED WITH PATIENT. NO ACUTE DISTRESS NOTED
[2019-04-11] MEDS: LISINOPRIL 5 MG TABLET PO SCH (09:31)
[2019-04-11] MEDS: ASPIRIN 325MG EC TAB 325 MG TABLET.DR PO SCH (09:31)
[2019-04-11] MEDS: CLOPIDOGREL BISULFATE 75 MG TAB PO SCH (09:32)
[2019-04-11] MEDS: AMIODARONE HCL 200 MG TABLET PO SCH (09:32)
[2019-04-11] MEDS: METOPROLOL TARTRATE 25 MG TAB PO SCH ×2 (09:32→20:35)
[2019-04-11] MEDS: FUROSEMIDE 20 MG TABLET PO SCH ×2 (09:32→16:43)
--- NOTE | 2019-04-11 10:00 | NUR ---
RT JUGULAR CORDIS REMOVED INTACT- OP SITE DRESSING APPLIED
--- NOTE | 2019-04-11 10:56 | NUR ---
DIABETES EDUCTION- PRINTED EXITCARE PACKET GIVEN TO PT. VERBAL INSTRUCTION ALSO GIVEN . VERBALIZES UNDERSTANDING
--- NOTE | 2019-04-11 15:00 | NUR ---
cm note met with patient and discussed dc planning, has who will be assisting him at dc. no dc needs, provided him with rx assist info , and low income clinics in the area, [facility] is working with [facility] and should be getting medicaid. dc plan is to home. to assist
--- NOTE | 2019-04-11 16:54 | NUR ---
HAND OFF REPORT GIVEN TO EBEN STEWARD. PT TRANSFERRED TO ROOM 204
[2019-04-11] MEDS: FAMOTIDINE 20MG TAB 20 MG TAB PO SCH (20:35)
[2019-04-11] MEDS: ATORVASTATIN CALCIUM 20 MG TABLET PO SCH (20:35)
[2019-04-12 00:30] VITALS: BP 121/77
[2019-04-12 04:21] LABS: HEMATOCRIT 33.1 % (42-54); MEAN CORPUSCULAR HEMOGLOBIN 30.2 pg (27.0-33.0); MEAN CORPUSCULAR HGB CONC 35.9 g/dL (32.0-36.0); PLATELET COUNT (AUTO) 243 K/uL (130-400); RED BLOOD CELL COUNT(AUTO) 3.94 MIL/uL (4.50-6.20); RED CELL DISTRIBUTION WIDTH 13.1 % (11.0-15.5); WHITE BLOOD COUNT (AUTO) 9.6 K/uL (4.8-10.8)
[2019-04-12 04:30] LABS: CREATININE 0.9 mg/dL (0.5-1.5); POTASSIUM 3.3 mmol/L (3.5-5.1)
[2019-04-12 04:52] LABS: B-TYPE NATRIURETIC PEPTIDE 556 pg/mL (0-100)
[2019-04-12 05:07] VITALS: BP 125/75
--- NOTE | 2019-04-12 05:38 | NUR ---
PATIENT ASSESSMENT PATIENT RESTING IN BED. NO C/O PAIN OR SOB. VOIDING. HARVEST SITE CLOSED WITH DERMABOND. CHEST DRESSING INTACT.
[2019-04-12] MEDS: INSULIN HUMULIN R 100 UNIT/ML 3ML SQ SCH ×2 (05:59→11:30)
[2019-04-12] MEDS: POTASSIUM CHLORIDE 20 MEQ ERTAB PO PRN ×2 (06:47→09:25)
[2019-04-12 07:00] VITALS: BP 137/85
[2019-04-12] MEDS ORDERED: ENOXAPARIN SODIUM 30 MG/0.3 ML SQ SCH (09:00)
[2019-04-12] MEDS: CLOPIDOGREL BISULFATE 75 MG TAB PO SCH (09:23)
[2019-04-12] MEDS: METOPROLOL TARTRATE 25 MG TAB PO SCH (09:23)
[2019-04-12] MEDS: ASPIRIN 325MG EC TAB 325 MG TABLET.DR PO SCH (09:24)
[2019-04-12] MEDS: FAMOTIDINE 20MG TAB 20 MG TAB PO SCH (09:24)
[2019-04-12] MEDS: LISINOPRIL 5 MG TABLET PO SCH (09:24)
[2019-04-12] MEDS: AMIODARONE HCL 200 MG TABLET PO SCH (09:24)
[2019-04-12] MEDS: FUROSEMIDE 20 MG TABLET PO SCH (09:24)
[2019-04-12 11:00] VITALS: BP 121/85
[2019-04-12] MEDS ORDERED: AMIO200T5 PO (16:22)
[2019-04-12] MEDS ORDERED: LISI-617 PO (16:23)
[2019-04-12] MEDS ORDERED: FURO20TA6 PO (16:23)
[2019-04-12] MEDS ORDERED: CLOP75TA14 PO (16:23)
[2019-04-12] MEDS ORDERED: METO50TA18 PO (16:24)
[2019-04-12] MEDS ORDERED: ASPI-1181 PO (16:24)
[2019-04-12] MEDS ORDERED: ATOR20TA65 PO (16:24)
[2019-04-12] MEDS ORDERED: POTA-79 PO (16:25)
== END 2019-04-12 17:09 | disposition home or self-care (01) | DRG 161 ==
LOC: EDH 23:31 → OBSVTOIN 23:32 → EDHIP 23:32 → 2CH 04-03 01:02 → 2CV 04-07 17:31 → 2BH 04-08 10:53 → 2AH 04-11 18:15
PROVIDERS: ADMIT Internal Medicine Cardiovascular Disease; ATTEND Internal Medicine Cardiovascular Disease
PROC: B2111ZZ Fluoroscopy of Multiple Coronary Arteries using Low Osmolar Contrast (ICD-10-PCS; principal; 2019-04-02)
PROC: 02HA3RZ Insertion of Short-term External Heart Assist System into Heart, Percutaneous Approach (ICD-10-PCS; 2019-04-02)
PROC: 5A0221D Assistance with Cardiac Output using Impeller Pump, Continuous (ICD-10-PCS; 2019-04-02)
PROC: 02120AW Bypass Coronary Artery, Three Arteries from Aorta with Autologous Arterial Tissue, Open Approach (ICD-10-PCS; 2019-04-02)
PROC: B2151ZZ Fluoroscopy of Left Heart using Low Osmolar Contrast (ICD-10-PCS; 2019-04-02)
PROC: 02100Z9 Bypass Coronary Artery, One Artery from Left Internal Mammary, Open Approach (ICD-10-PCS; 2019-04-02)
PROC: 06BQ0ZZ Excision of Left Saphenous Vein, Open Approach (ICD-10-PCS; 2019-04-02)
PROC: 4A023N7 Measurement of Cardiac Sampling and Pressure, Left Heart, Percutaneous Approach (ICD-10-PCS; 2019-04-02)
DX: I21.09 ST elevation (STEMI) myocardial infarction involving other coronary artery of anterior wall (principal); R57.0 Cardiogenic shock; I50.9 Heart failure, unspecified; I11.0 Hypertensive heart disease with heart failure; I25.10 Atherosclerotic heart disease of native coronary artery without angina pectoris; E11.9 Type 2 diabetes mellitus without complications; E78.2 Mixed hyperlipidemia; F17.200 Nicotine dependence, unspecified, uncomplicated; Z79.82 Long term (current) use of aspirin; Z79.899 Other long term (current) drug therapy
CPT/HCPCS: 33990; 36415; 36600; 71045; 80048; 80053; 80061; 82330; 82435; 82550; 82803; 82947; 82948; 83036; 83605; 83735; 83874; 83880; 84100; 84132; 84295; 84484; 85018; 85025; 85027; 85347; 85610; 85730; 86850; 86900; 86901; 86922; 93005; 93306; 93458; 93880; 94002; 94003; 94150; 97039; 99291; A4357; A7048; C1769; C1894; G0378; J0171; J0282; J0583; J0610; J0690; J1644; J1650; J1815; J1940; J2001; J2250; J2270; J2405; J2440; J2704; J2720; J3010; J3475; J3480; J3490; J7030; J7040; J7060; Q9967

== ENCOUNTER 2019-04-22 09:51 | Inpatient (IN) | payer MEDICAID ==
[~2019-04-22] VITALS: Ht 177.8 cm; Wt 93.9 kg
[~2019-04-22 09:51] MED LIST: AMIO200T5 PO; ASPI-1181 PO; ATOR20TA65 PO; CLOP75TA14 PO; FURO20TA6 PO; LISI-617 PO; METO50TA18 PO; POTA-79 PO
[2019-04-22] MEDS ORDERED: SODIUM CHLORIDE 0.9% 1000ML 1,000 ML IV ONE (10:25)
[2019-04-22] MEDS ORDERED: CEFTRIAXONE SODIUM 1 GM ONE (10:25)
[2019-04-22 10:34] LABS: BASOPHILS % (AUTO) 0.5 % (0.0-5.0); EOSINOPHILS % (AUTO) 0.1 % (0.0-8.0); HEMATOCRIT 38.2 % (42-54); LYMPHOCYTES % (AUTO) 5.5 % (21.0-51.0); MEAN CORPUSCULAR HEMOGLOBIN 29.1 pg (27.0-33.0); MEAN CORPUSCULAR HGB CONC 33.9 g/dL (32.0-36.0); MEAN CORPUSCULAR VOLUME 85.7 fL (79-99); MONOCYTES % (AUTO) 2.5 % (3.0-13.0); NEUTROPHILS % (AUTO) 91.4 % (40.0-77.0); PLATELET COUNT (AUTO) 478 K/uL (130-400); RED BLOOD CELL COUNT(AUTO) 4.45 MIL/uL (4.50-6.20); RED CELL DISTRIBUTION WIDTH 13.5 % (11.0-15.5); WHITE BLOOD COUNT (AUTO) 12.5 K/uL (4.8-10.8)
[2019-04-22 10:50] LABS: CREATININE 1.1 mg/dL (0.5-1.5); POTASSIUM 3.9 mmol/L (3.5-5.1)
[2019-04-22 10:56] LABS: ALBUMIN 3.1 g/dL (3.5-5.0); BILIRUBIN,TOTAL 1.9 mg/dL (0.2-1.0); MAGNESIUM 1.7 mg/dL (1.80-2.40)
[2019-04-22] MEDS ORDERED: ONDANSETRON HCL 4 MG/2 ML VIAL ONE (12:37)
[2019-04-22] MEDS ORDERED: HYDROMORPHONE 1 MG/1 ML AMP ONE (12:38)
[2019-04-22 12:58] LABS: AMYLASE 75 U/L (25-115); LIPASE 464 U/L (114-286)
[2019-04-22 15:43] LABS: APPEARANCE,URINE Clear (CLEAR); BILIRUBIN,URINE Small (NEGATIVE); COLOR,URINE Dark Yellow (YELLOW); GLUCOSE, URINE (UA) TRACE mg/dL (NEGATIVE); KETONES,URINE Trace mg/dL (NEGATIVE); LEUKOCYTE ESTERASE ,URINE Negative (NEGATIVE); NITRATE,URINE Negative (NEGATIVE); OCCULT BLOOD,URINE Nonhemolyzed Trace (NEGATIVE); PROTEIN,URINE Negative (NEGATIVE)
[2019-04-22 15:53] LABS: WBC,URINE 0-1 /HPF (0-1)
[2019-04-22 15:54] LABS: BACTERIA,URINE Rare /HPF (None Seen); MUCUS,URINE Few LPF (None Seen); SQUAMOUS EPITHELIAL CELL,UR Rare /HPF (0-2)
[2019-04-22 15:55] LABS: HYALINE CASTS, URINE 0-1 /LPF (0-1 /LPF); TRANSITIONAL EPI CELLS,URINE Rare /HPF (None Seen)
[2019-04-22 17:00] VITALS: BP 131/82
[2019-04-22 19:00] VITALS: BP 131/76
[2019-04-22] MEDS ORDERED: DEXTROSE 50%-WATER 50 ML DISP.SYRIN IV PRN ×2 (19:45→20:15)
[2019-04-22] MEDS ORDERED: ONDANSETRON HCL 4 MG/2 ML VIAL IVP PRN (19:45)
[2019-04-22] MEDS ORDERED: GLUCAGON 1MG KIT 1 MG ML IM PRN ×2 (19:45→20:15)
[2019-04-22] MEDS: HYDROMORPHONE HCL 2 MG/ML VIAL IVP PRN ×2 (20:11→23:56)
[2019-04-22] MEDS: PHARMACY COMMUNICATION MISC SCH ×2 (20:15→22:15)
[2019-04-22] MEDS: SODIUM CHLORIDE 0.9% 1000ML 1,000 ML IV SCH (20:36)
[2019-04-22] MEDS ORDERED: INSULIN HUMULIN R 100 UNIT/ML 3ML SQ SCH (21:00)
[2019-04-22] MEDS: ATORVASTATIN CALCIUM 20 MG TABLET PO SCH (21:00)
[2019-04-22] MEDS: METOPROLOL TARTRATE 50 MG TAB PO SCH (21:00)
[2019-04-22] MEDS: INSULIN R NPO SSI SQ SCH (23:57)
[2019-04-23] VITALS (7 sets, daily range): BP systolic 121–135; BP diastolic 73–84
[2019-04-23] MEDS: PHARMACY COMMUNICATION MISC SCH ×12 (00:15→19:48)
[2019-04-23 05:02] LABS: MEAN CORPUSCULAR HEMOGLOBIN 29.4 pg (27.0-33.0); MEAN CORPUSCULAR HGB CONC 34.6 g/dL (32.0-36.0); MEAN CORPUSCULAR VOLUME 84.8 fL (79-99); PLATELET COUNT (AUTO) 302 K/uL (130-400); RED BLOOD CELL COUNT(AUTO) 3.77 MIL/uL (4.50-6.20); RED CELL DISTRIBUTION WIDTH 13.6 % (11.0-15.5); WHITE BLOOD COUNT (AUTO) 7.8 K/uL (4.8-10.8)
[2019-04-23 05:18] LABS: CREATININE 1.1 mg/dL (0.5-1.5); MAGNESIUM 1.6 mg/dL (1.80-2.40); POTASSIUM 3.7 mmol/L (3.5-5.1)
[2019-04-23] MEDS: INSULIN R NPO SSI SQ SCH ×4 (05:40→23:45)
--- NOTE | 2019-04-23 08:35 | NUR ---
PAGED DR. FOSTER AND DR. Chun BABIN REGARDING CONSULT
--- NOTE | 2019-04-23 08:45 | NUR ---
DR. FOSTER SPOKE TO MD VIA TELEPHONE REGARDING CONSULT.
[2019-04-23 09:52] LABS: ALBUMIN 2.5 g/dL (3.5-5.0); BILIRUBIN,TOTAL 0.9 mg/dL (0.2-1.0); TOTAL PROTEIN, SERUM 6.3 g/dL (6.0-8.3)
[2019-04-23 09:53] LABS: INR 1.11 (0.85-1.15); PROTHROMBIN TIME 11.6 SEC (9.6-11.6)
[2019-04-23] MEDS: SODIUM CHLORIDE 0.9% 1000ML 1,000 ML IV SCH ×2 (10:44→23:07)
[2019-04-23] MEDS: PANTOPRAZOLE SODIUM 40 MG TABLET.DR PO SCH (10:45)
[2019-04-23] MEDS: ASPIRIN 81 MG EC TAB PO SCH (10:45)
[2019-04-23] MEDS: POTASSIUM CHLORIDE 20 MEQ ERTAB PO SCH (10:46)
[2019-04-23] MEDS: LISINOPRIL 5 MG TABLET PO SCH (10:46)
[2019-04-23] MEDS: FUROSEMIDE 20 MG TABLET PO SCH (10:46)
[2019-04-23] MEDS: METOPROLOL TARTRATE 50 MG TAB PO SCH ×2 (10:46→20:26)
[2019-04-23] MEDS: CLOPIDOGREL BISULFATE 75 MG TAB PO SCH (10:47)
[2019-04-23] MEDS: AMIODARONE HCL 200 MG TABLET PO SCH (10:47)
[2019-04-23] MEDS: MAGNESIUM 2GM PREMIX 50ML 50 ML IV PRN (10:47)
[2019-04-23] MEDS: CEFTRIAXONE SODIUM 1 GM IVP SCH (12:09)
--- NOTE | 2019-04-23 15:30 | NUR ---
DR. FERNANDEZ BABIN SPOKE TO MD REGARDING CONSULT. AWARE OF CONSULT. TOLD ME HE DOES NOT HAVE TO SEE PATIENT, UNLESS PATIENT DEVELOPS CARDIAC ISSUES WHILE IN THE HOSPITAL.
--- NOTE | 2019-04-23 15:40 | NUR ---
DR. GARY ARZATE ROUNDING AT THIS TIME. ORDERED TO OBTAIN CARDIAC CLEARANCE FROM PATIENTS [employer] DRIVER PRIOR TO POSSIBLE LAP BELLA ON Sunday04/25/19.
--- NOTE | 2019-04-23 15:45 | NUR ---
DR. FERNANDEZ BABIN REPAGED DR. FERNANDEZ BABIN REGARDING CARDIAC CLEARANCE REQUEST FROM DR. VEGA.
--- NOTE | 2019-04-23 16:05 | NUR ---
DCP CM met with pt discussed dc plans. Pt is independent prior to admission, lives at home with spouse. Denies any equipments/services. Pt feels safe to go back home, still works and drives, spouse able to assist with transportation and needs as necessary. DC plan to home once stable. CM to cont to follow up. Addendum: 04/23/19 at 1606 by EDER VANN LVN CM Amended: Links added.
[2019-04-23] MEDS ORDERED: SITA1TAB6 PO (18:44)
[2019-04-23] MEDS: ATORVASTATIN CALCIUM 20 MG TABLET PO SCH (20:27)
[2019-04-24 03:20] VITALS: BP 136/81
[2019-04-24] MEDS: INSULIN R NPO SSI SQ SCH ×2 (05:52→11:29)
[2019-04-24 06:18] LABS: BASOPHILS % (AUTO) 1.2 % (0.0-5.0); EOSINOPHILS % (AUTO) 1.8 % (0.0-8.0); HEMATOCRIT 33.9 % (42-54); LYMPHOCYTES % (AUTO) 18.9 % (21.0-51.0); MEAN CORPUSCULAR HEMOGLOBIN 28.9 pg (27.0-33.0); MEAN CORPUSCULAR HGB CONC 34.2 g/dL (32.0-36.0); MEAN CORPUSCULAR VOLUME 84.5 fL (79-99); MONOCYTES % (AUTO) 6.5 % (3.0-13.0); NEUTROPHILS % (AUTO) 71.6 % (40.0-77.0); PLATELET COUNT (AUTO) 320 K/uL (130-400); RED BLOOD CELL COUNT(AUTO) 4.01 MIL/uL (4.50-6.20); RED CELL DISTRIBUTION WIDTH 13.7 % (11.0-15.5); WHITE BLOOD COUNT (AUTO) 5.9 K/uL (4.8-10.8)
[2019-04-24 06:29] LABS: CREATININE 1.2 mg/dL (0.5-1.5)
[2019-04-24 06:32] LABS: ALBUMIN 2.6 g/dL (3.5-5.0); BILIRUBIN,TOTAL 0.7 mg/dL (0.2-1.0); TOTAL PROTEIN, SERUM 6.3 g/dL (6.0-8.3)
[2019-04-24 06:37] LABS: INR 1.09 (0.85-1.15); PARTIAL THROMBOPLASTIN TIME 25.4 SEC (26.3-35.5); PROTHROMBIN TIME 11.4 SEC (9.6-11.6)
[2019-04-24] MEDS ORDERED: IOHEXOL-350 50ML VIAL IV ONE (06:37)
[2019-04-24] MEDS ORDERED: INDOMETHACIN 50 MG SUPP.RECT RC SCH (07:15)
[2019-04-24] MEDS: PANTOPRAZOLE SODIUM 40 MG TABLET.DR PO SCH (07:30)
[2019-04-24 08:09] VITALS: BP 141/74
--- NOTE | 2019-04-24 08:55 | NUR ---
DR. HAKAN MCCLENDON WAS NOTIFIED OF DVT SHOWING UP ON U/S. HE WAS ASKED ABOUT ANTICOAGULATION AND HE WANTED TO SPEAK TO RADIOLOGIST REGARDING THE READING. SPOKE WITH HISTOTECHNICIAN WHO WILL SPEAK TO HER DIRECTOR REGARDING THIS ISSUE SINCE THE RADIOLOGIST WHO READ THE STUDY IS NOT WORKING THIS WEEK. SHE WILL TRY TO GET ANOTHER RADIOLOGIST TO ANSWER HIS QUESTIONS. CELL PHONE NUMBER FOR DR. MCCLENDON WAS PROVIDED PER DR. MCCLENDON' ORDERS. PENDING CALL BACK FROM RADIOLOGY.
[2019-04-24] MEDS: ASPIRIN 81 MG EC TAB PO SCH (09:14)
[2019-04-24] MEDS: LISINOPRIL 5 MG TABLET PO SCH (09:14)
[2019-04-24] MEDS: POTASSIUM CHLORIDE 20 MEQ ERTAB PO SCH (09:15)
[2019-04-24] MEDS: FUROSEMIDE 20 MG TABLET PO SCH (09:15)
[2019-04-24] MEDS: AMIODARONE HCL 200 MG TABLET PO SCH (09:15)
[2019-04-24] MEDS: METOPROLOL TARTRATE 50 MG TAB PO SCH ×2 (09:15→20:22)
[2019-04-24] MEDS: CEFTRIAXONE SODIUM 1 GM IVP SCH (10:18)
[2019-04-24 11:10] VITALS: BP 146/85
[2019-04-24] MEDS: SODIUM CHLORIDE 0.9% 1000ML 1,000 ML IV SCH (14:25)
[2019-04-24 16:15] VITALS: BP 138/90
[2019-04-24] MEDS: PHARMACY COMMUNICATION MISC SCH ×2 (18:15→19:03)
[2019-04-24 19:13] VITALS: BP 136/86
[2019-04-24] MEDS: INSULIN HUMULIN R 100 UNIT/ML 3ML SQ SCH (20:22)
[2019-04-24] MEDS: ATORVASTATIN CALCIUM 20 MG TABLET PO SCH (20:22)
[2019-04-24] MEDS: HYDROMORPHONE HCL 2 MG/ML VIAL IVP PRN (20:28)
[2019-04-24 23:37] VITALS: BP 137/84
[2019-04-25] MEDS: SODIUM CHLORIDE 0.9% 1000ML 1,000 ML IV SCH ×2 (01:35→20:28)
[2019-04-25 03:17] VITALS: BP 130/80
[2019-04-25] MEDS: INSULIN HUMULIN R 100 UNIT/ML 3ML SQ SCH ×4 (06:11→20:25)
[2019-04-25 08:00] VITALS: BP 145/89
[2019-04-25] MEDS: ASPIRIN 81 MG EC TAB PO SCH (09:17)
[2019-04-25] MEDS: CEFTRIAXONE SODIUM 1 GM IVP SCH (09:17)
[2019-04-25] MEDS: ENOXAPARIN SODIUM 40 MG/0.4 ML SYRINGE SQ SCH (09:18)
[2019-04-25] MEDS: AMIODARONE HCL 200 MG TABLET PO SCH (09:18)
[2019-04-25] MEDS: FUROSEMIDE 20 MG TABLET PO SCH (09:18)
[2019-04-25] MEDS: LISINOPRIL 5 MG TABLET PO SCH (09:19)
[2019-04-25] MEDS: METOPROLOL TARTRATE 50 MG TAB PO SCH ×2 (09:19→20:27)
[2019-04-25] MEDS: POTASSIUM CHLORIDE 20 MEQ ERTAB PO SCH (09:19)
[2019-04-25] MEDS: PANTOPRAZOLE SODIUM 40 MG TABLET.DR PO SCH (09:22)
[2019-04-25 12:01] VITALS: BP 119/79
[2019-04-25 16:00] VITALS: BP 134/75
[2019-04-25 19:30] VITALS: BP 114/74
[2019-04-25] MEDS: ATORVASTATIN CALCIUM 20 MG TABLET PO SCH (20:27)
[2019-04-25 23:00] VITALS: BP 126/65
[2019-04-26 03:30] VITALS: BP 138/76
[2019-04-26 04:31] LABS: MAGNESIUM 1.5 mg/dL (1.80-2.40); POTASSIUM 3.3 mmol/L (3.5-5.1)
[2019-04-26 04:33] LABS: BASOPHILS % (AUTO) 2.2 % (0.0-5.0); EOSINOPHILS % (AUTO) 1.8 % (0.0-8.0); HEMATOCRIT 33.4 % (42-54); LYMPHOCYTES % (AUTO) 24.3 % (21.0-51.0); MEAN CORPUSCULAR HEMOGLOBIN 29.4 pg (27.0-33.0); MEAN CORPUSCULAR HGB CONC 35.2 g/dL (32.0-36.0); MEAN CORPUSCULAR VOLUME 83.4 fL (79-99); MONOCYTES % (AUTO) 6.8 % (3.0-13.0); NEUTROPHILS % (AUTO) 64.9 % (40.0-77.0); PLATELET COUNT (AUTO) 272 K/uL (130-400); RED CELL DISTRIBUTION WIDTH 13.5 % (11.0-15.5); WHITE BLOOD COUNT (AUTO) 5.8 K/uL (4.8-10.8)
[2019-04-26] MEDS: INSULIN HUMULIN R 100 UNIT/ML 3ML SQ SCH ×4 (06:14→20:32)
[2019-04-26] MEDS: MAGNESIUM 2GM PREMIX 50ML 50 ML IV PRN (06:26)
[2019-04-26] MEDS: PANTOPRAZOLE SODIUM 40 MG TABLET.DR PO SCH (06:30)
[2019-04-26 07:53] VITALS: BP 138/71
[2019-04-26] MEDS: METOPROLOL TARTRATE 50 MG TAB PO SCH ×2 (09:43→20:32)
[2019-04-26] MEDS: LISINOPRIL 5 MG TABLET PO SCH (09:43)
[2019-04-26] MEDS: ASPIRIN 81 MG EC TAB PO SCH (09:43)
[2019-04-26] MEDS: FUROSEMIDE 20 MG TABLET PO SCH (09:43)
[2019-04-26] MEDS: AMIODARONE HCL 200 MG TABLET PO SCH (09:43)
[2019-04-26] MEDS: POTASSIUM CHLORIDE 20 MEQ ERTAB PO SCH (09:44)
[2019-04-26] MEDS: ENOXAPARIN SODIUM 40 MG/0.4 ML SYRINGE SQ SCH (09:45)
[2019-04-26] MEDS: CEFTRIAXONE SODIUM 1 GM IVP SCH (09:55)
[2019-04-26 11:39] VITALS: BP 121/78
[2019-04-26] MEDS ORDERED: POTASSIUM CHLORIDE 10% ELIXIR 20 MEQ/15 ML UDCUP PO PRN (13:00)
[2019-04-26] MEDS ORDERED: LIDOCAINE HCL-MPF 1% 2ML VIAL IV PRN (13:00)
[2019-04-26] MEDS ORDERED: POTASSIUM CHLORIDE 20MEQ/100ML 100 ML IV PRN (13:00)
[2019-04-26] MEDS: POTASSIUM CHLORIDE 20 MEQ ERTAB PO PRN ×2 (13:59→17:04)
[2019-04-26 16:00] VITALS: BP 139/91
[2019-04-26 19:32] VITALS: BP 133/89
[2019-04-26] MEDS: ATORVASTATIN CALCIUM 20 MG TABLET PO SCH (20:32)
[2019-04-26] MEDS: SODIUM CHLORIDE 0.9% 1000ML 1,000 ML IV SCH (20:32)
[2019-04-26] MEDS: HYDROMORPHONE HCL 2 MG/ML VIAL IVP PRN (22:48)
[2019-04-26 23:30] VITALS: BP 107/58
[2019-04-27 03:30] VITALS: BP 139/85
[2019-04-27 04:48] LABS: MEAN CORPUSCULAR HEMOGLOBIN 28.6 pg (27.0-33.0); MEAN CORPUSCULAR HGB CONC 33.4 g/dL (32.0-36.0); MEAN CORPUSCULAR VOLUME 85.8 fL (79-99); PLATELET COUNT (AUTO) 241 K/uL (130-400); RED CELL DISTRIBUTION WIDTH 13.4 % (11.0-15.5); WHITE BLOOD COUNT (AUTO) 6.7 K/uL (4.8-10.8)
[2019-04-27 04:57] LABS: MAGNESIUM 1.6 mg/dL (1.80-2.40); POTASSIUM 3.5 mmol/L (3.5-5.1)
[2019-04-27] MEDS: INSULIN HUMULIN R 100 UNIT/ML 3ML SQ SCH ×4 (05:43→20:53)
[2019-04-27] MEDS: SODIUM CHLORIDE 0.9% 1000ML 1,000 ML IV SCH ×2 (06:55→20:15)
[2019-04-27] MEDS: PANTOPRAZOLE SODIUM 40 MG TABLET.DR PO SCH (06:56)
[2019-04-27] MEDS: HYDROMORPHONE HCL 2 MG/ML VIAL IVP PRN (07:00)
[2019-04-27 08:00] VITALS: BP 133/80
[2019-04-27] MEDS: METOPROLOL TARTRATE 50 MG TAB PO SCH ×2 (10:15→21:03)
[2019-04-27] MEDS: POTASSIUM CHLORIDE 20 MEQ ERTAB PO SCH (10:16)
[2019-04-27] MEDS: CEFTRIAXONE SODIUM 1 GM IVP SCH (10:16)
[2019-04-27] MEDS: LISINOPRIL 5 MG TABLET PO SCH (10:16)
[2019-04-27] MEDS: AMIODARONE HCL 200 MG TABLET PO SCH (10:16)
[2019-04-27] MEDS: ASPIRIN 81 MG EC TAB PO SCH (10:16)
[2019-04-27] MEDS: FUROSEMIDE 20 MG TABLET PO SCH (10:16)
[2019-04-27] MEDS: ENOXAPARIN SODIUM 40 MG/0.4 ML SYRINGE SQ SCH (10:17)
[2019-04-27 11:00] VITALS: BP 131/80
[2019-04-27 16:00] VITALS: BP 149/92
[2019-04-27] MEDS ORDERED: PEG 3350/NA SULF,BICARB,CL/KCL 4000 ML SOLN PO SCH (17:40)
[2019-04-27 19:25] VITALS: BP 132/87
[2019-04-27] MEDS: ATORVASTATIN CALCIUM 20 MG TABLET PO SCH (21:03)
[2019-04-27 23:29] VITALS: BP 136/70
[2019-04-28] VITALS (19 sets, daily range): BP systolic 108–169; BP diastolic 67–99
[2019-04-28] MEDS: HYDROMORPHONE HCL 2 MG/ML VIAL IVP PRN ×4 (00:27→23:05)
[2019-04-28 05:11] LABS: BASOPHILS % (AUTO) 0.5 % (0.0-5.0); HEMATOCRIT 34.3 % (42-54); LYMPHOCYTES % (AUTO) 20.3 % (21.0-51.0); MEAN CORPUSCULAR HGB CONC 34.7 g/dL (32.0-36.0); MEAN CORPUSCULAR VOLUME 83.5 fL (79-99); MONOCYTES % (AUTO) 8.3 % (3.0-13.0); NEUTROPHILS % (AUTO) 69.9 % (40.0-77.0); PLATELET COUNT (AUTO) 261 K/uL (130-400); RED CELL DISTRIBUTION WIDTH 13.3 % (11.0-15.5); WHITE BLOOD COUNT (AUTO) 8.3 K/uL (4.8-10.8)
[2019-04-28 05:27] LABS: INR 1.15 (0.85-1.15); PARTIAL THROMBOPLASTIN TIME 27.4 SEC (26.3-35.5)
[2019-04-28] MEDS: PANTOPRAZOLE SODIUM 40 MG TABLET.DR PO SCH ×2 (05:30→11:12)
[2019-04-28 05:34] LABS: CREATININE 0.9 mg/dL (0.5-1.5)
[2019-04-28] MEDS: POTASSIUM CHLORIDE 20MEQ/100ML 100 ML IV PRN (06:10)
[2019-04-28] MEDS: INSULIN HUMULIN R 100 UNIT/ML 3ML SQ SCH ×4 (06:10→20:35)
[2019-04-28] MEDS: LIDOCAINE HCL-MPF 1% 2ML VIAL IV PRN (06:16)
[2019-04-28] MEDS ORDERED: IOHEXOL-350 50ML VIAL IV ONE (06:35)
[2019-04-28] MEDS ORDERED: INDOMETHACIN 50 MG SUPP.RECT RC SCH (07:00)
[2019-04-28] MEDS ORDERED: PROPOFOL 10 MG/ML 20ML VIAL IV ONE (07:22)
[2019-04-28] MEDS ORDERED: FENTANYL CITRATE PF 50 MCG/1 ML 2ML VIAL ONE ×2 (07:23→08:21)
[2019-04-28] MEDS ORDERED: SUCCINYLCHOLINE 200MG/10ML SYR ONE (07:48)
[2019-04-28] MEDS ORDERED: EPHEDRINE SULFATE 50 MG/ML AMPULE ONE (08:30)
[2019-04-28] MEDS: ENOXAPARIN SODIUM 40 MG/0.4 ML SYRINGE SQ SCH (09:00)
[2019-04-28 09:15] LABS: ALBUMIN 2.8 g/dL (3.5-5.0); BILIRUBIN,TOTAL 0.9 mg/dL (0.2-1.0); TOTAL PROTEIN, SERUM 6.3 g/dL (6.0-8.3)
[2019-04-28] MEDS: SODIUM CHLORIDE 0.9% 1000ML 1,000 ML IV SCH ×2 (09:35→22:55)
[2019-04-28] MEDS: LISINOPRIL 5 MG TABLET PO SCH (11:11)
[2019-04-28] MEDS: CEFTRIAXONE SODIUM 1 GM IVP SCH (11:11)
[2019-04-28] MEDS: FUROSEMIDE 20 MG TABLET PO SCH (11:12)
[2019-04-28] MEDS: ASPIRIN 81 MG EC TAB PO SCH (11:12)
[2019-04-28] MEDS: AMIODARONE HCL 200 MG TABLET PO SCH (11:12)
[2019-04-28] MEDS: METOPROLOL TARTRATE 50 MG TAB PO SCH ×2 (11:12→20:34)
[2019-04-28] MEDS: POTASSIUM CHLORIDE 20 MEQ ERTAB PO SCH (11:13)
[2019-04-28 11:24] LABS: TROPONIN I 0.07 ng/mL (0.00-0.06)
--- NOTE | 2019-04-28 12:00 | NUR ---
NOTE PATIENT CAME BACK FROM ERCP AND WAS IN A LOT OF PAIN AND DIAPHORETIC EARLIER. CALLED DR FOSTER AND LABS WERE ORDERED AMONG OTHER ORDERS. PATIENT IS STABLE NOW. CARDIAC ENZYMES NEGATIVE. NO CHEST PAIN. NO DIAPHORESIS AT THIS TIME. WAS MEDICATED FOR ABDOMINAL PAIN. BLOOD SUGAR WAS IN THE 180 RANGE. EKG NORMAL SINUS RHYTHM. KUB DONE PENDING RESULTS.
--- NOTE | 2019-04-28 15:28 | NUR ---
DISCUSSED POC W PRIMARY RN EXPECTED TO HAVE A LAP BELLA IN AM, THEN STAY OVERNIGHT, THEN RESUME BLOOD TIHINNERS RECOMMENDED AND BE DISCHARGE NEXT DAY. PLAN TENTATIVE, WILL WAIT FOR MD RECOMMENDATION
--- NOTE | 2019-04-28 18:30 | NUR ---
NOTE AAOX3. MEDICATED FOR PAIN. C/O RUQ PAIN. HAS BEEN STABLE THROUGHOUT THE DAY. NO N/V NO DISTRESS NO SOB. NO DIAPHORESIS. HE IS ON CLEAR LIQUID DIET. HE WILL BE NPO AFTER BREAKFAST TOMORROW FOR POSSIBLE CHOLECYSTECTOMY TOMORROW. MARGARITA WITH DR VEGA STOPPED BY AND HE WILL SPEAK WITH HER SINCE SURGERY WAS ALREADY IN THE PLANS BUT HAD BEEN WAITING A FIVE DAYS PERIOD WITHOUT PLAVIX FOR HIGH RISK FOR BLEED.
[2019-04-28] MEDS: ATORVASTATIN CALCIUM 20 MG TABLET PO SCH (20:34)
[2019-04-28] MEDS: POTASSIUM CHLORIDE 20 MEQ ERTAB PO PRN (20:34)
[2019-04-29 04:00] VITALS: BP 142/87
[2019-04-29 04:38] LABS: HEMATOCRIT 33.8 % (42-54); MEAN CORPUSCULAR HEMOGLOBIN 29.2 pg (27.0-33.0); MEAN CORPUSCULAR HGB CONC 34.6 g/dL (32.0-36.0); MEAN CORPUSCULAR VOLUME 84.5 fL (79-99); PLATELET COUNT (AUTO) 212 K/uL (130-400); RED CELL DISTRIBUTION WIDTH 13.7 % (11.0-15.5); WHITE BLOOD COUNT (AUTO) 9.1 K/uL (4.8-10.8)
[2019-04-29 04:47] LABS: INR 1.15 (0.85-1.15); PARTIAL THROMBOPLASTIN TIME 27.5 SEC (26.3-35.5)
[2019-04-29 04:50] LABS: BILIRUBIN,TOTAL 3.3 mg/dL (0.2-1.0); CREATININE 0.8 mg/dL (0.5-1.5); POTASSIUM 3.4 mmol/L (3.5-5.1)
[2019-04-29 04:51] LABS: ALBUMIN 2.5 g/dL (3.5-5.0)
[2019-04-29] MEDS: HYDROMORPHONE HCL 2 MG/ML VIAL IVP PRN (05:31)
[2019-04-29] MEDS: POTASSIUM CHLORIDE 20 MEQ ERTAB PO PRN (05:31)
[2019-04-29] MEDS: INSULIN HUMULIN R 100 UNIT/ML 3ML SQ SCH ×4 (05:47→20:35)
--- NOTE | 2019-04-29 06:41 | NUR ---
MD CASSANDRA SABA VISITED WITH PATIENT. POC DISCUSSED. NEW ORDERS RECEIVED AND CARRIED OUT. PATIENT AWARE. WILL CONTINUE TO BE OBSERVED. Addendum: 04/29/19 at 0642 by BELIA CONLEY RN RN Amended: Links added.
[2019-04-29 07:47] VITALS: BP 140/89
[2019-04-29] MEDS: CEFTRIAXONE SODIUM 1 GM IVP SCH (10:10)
[2019-04-29] MEDS: ASPIRIN 81 MG EC TAB PO SCH (10:11)
[2019-04-29] MEDS: AMIODARONE HCL 200 MG TABLET PO SCH (10:11)
[2019-04-29] MEDS: POTASSIUM CHLORIDE 20 MEQ ERTAB PO SCH (10:11)
[2019-04-29] MEDS: FUROSEMIDE 20 MG TABLET PO SCH (10:12)
[2019-04-29] MEDS: METOPROLOL TARTRATE 50 MG TAB PO SCH ×2 (10:12→20:34)
[2019-04-29] MEDS: LISINOPRIL 5 MG TABLET PO SCH (10:12)
[2019-04-29 11:11] VITALS: BP 132/91
[2019-04-29] MEDS: SODIUM CHLORIDE 0.9% 1000ML 1,000 ML IV SCH (12:15)
[2019-04-29] MEDS: ENOXAPARIN SODIUM 40 MG/0.4 ML SYRINGE SQ SCH (14:03)
[2019-04-29 16:50] VITALS: BP 134/99
--- NOTE | 2019-04-29 17:00 | NUR ---
NOTE PATIENT HAS REMAINED STABLE, NO DISTRESS OR SOB. BBS CLEAR. C/O SOME DISCOMFORT TO RUQ BUT OVERALL MORE MORE COMFORTABLE THAN YESTERDAY. MARGARITA VANN CAME IN AND SPOKE TO HIM AND HE WILL HAVE SURGERY IN AM WITH DR VEGA. REFER TO CHART FOR ORDERS. HE WAS GIVEN LOVENOX TODAY BUT WILL HAVE TO BE ON HOLD.
--- NOTE | 2019-04-29 17:05 | NUR ---
DC FRANKYNA REMAINS TO HOME SURGERY IN AM PER MARGARITA WILL FOLLOW Addendum: 04/30/19 at 0756 by BANDAR HERMOSILLO RN CM DC PLAN REMAINS TO HOME
[2019-04-29 19:50] VITALS: BP 144/76
[2019-04-29] MEDS: ATORVASTATIN CALCIUM 20 MG TABLET PO SCH (20:34)
[2019-04-30] VITALS (25 sets, daily range): BP systolic 111–165; BP diastolic 67–89
[2019-04-30 05:45] LABS: HEMATOCRIT 33.2 % (42-54); MEAN CORPUSCULAR HEMOGLOBIN 29.1 pg (27.0-33.0); MEAN CORPUSCULAR HGB CONC 34.8 g/dL (32.0-36.0); MEAN CORPUSCULAR VOLUME 83.6 fL (79-99); PLATELET COUNT (AUTO) 220 K/uL (130-400); RED BLOOD CELL COUNT(AUTO) 3.97 MIL/uL (4.50-6.20); RED CELL DISTRIBUTION WIDTH 13.9 % (11.0-15.5); WHITE BLOOD COUNT (AUTO) 4.9 K/uL (4.8-10.8)
[2019-04-30 05:58] LABS: INR 1.15 (0.85-1.15); PARTIAL THROMBOPLASTIN TIME 27.9 SEC (26.3-35.5)
[2019-04-30 06:23] LABS: ALBUMIN 2.4 g/dL (3.5-5.0); BILIRUBIN,TOTAL 2.6 mg/dL (0.2-1.0); CREATININE 0.8 mg/dL (0.5-1.5); MAGNESIUM 1.3 mg/dL (1.80-2.40); TOTAL PROTEIN, SERUM 5.8 g/dL (6.0-8.3)
[2019-04-30] MEDS: SODIUM CHLORIDE 0.9% 1000ML 1,000 ML IV SCH ×2 (06:23→21:30)
[2019-04-30] MEDS ORDERED: DEXAMETHASONE SOD PHOSPHATE 10MG/ML 1ML VIAL ONE (07:13)
[2019-04-30] MEDS ORDERED: ONDANSETRON HCL 4 MG/2 ML VIAL ONE (07:13)
[2019-04-30] MEDS ORDERED: LIDOCAINE PF 2% 5ML ABBOJECT ONE (07:13)
[2019-04-30] MEDS ORDERED: FENTANYL CITRATE PF 50 MCG/1 ML 2ML VIAL ONE (07:13)
[2019-04-30] MEDS ORDERED: PROPOFOL 10 MG/ML 20ML VIAL IV ONE ×2 (07:13→08:22)
[2019-04-30] MEDS ORDERED: ROCURONIUM 10MG/1ML SYR 10 MG/ML ML ONE (07:14)
[2019-04-30] MEDS ORDERED: MIDAZOLAM HCL 1 MG/ML 2ML VIAL ONE (07:14)
[2019-04-30] MEDS ORDERED: BUPIVACAINE/PF 0.5% 30ML VIAL ONE (07:27)
[2019-04-30] MEDS: PANTOPRAZOLE SODIUM 40 MG TABLET.DR PO SCH (07:30)
[2019-04-30] MEDS ORDERED: PHENYLEPHRINE HCL 10 MG/ML 1ML VIAL IV ONE (07:41)
[2019-04-30] MEDS ORDERED: EPHEDRINE SULFATE 50 MG/ML AMPULE ONE (07:41)
[2019-04-30] MEDS ORDERED: GLYCOPYRROLATE 1 MG/5 ML SYRINGE ONE (08:33)
[2019-04-30] MEDS ORDERED: NEOSTIGMINE 5MG/5ML SYR IV ONE (08:33)
[2019-04-30] MEDS ORDERED: MEPERIDINE-PF 25 MG/ML SYG ONE ×2 (08:57→09:09)
[2019-04-30] MEDS: LISINOPRIL 5 MG TABLET PO SCH (09:00)
[2019-04-30] MEDS: METOPROLOL TARTRATE 50 MG TAB PO SCH ×2 (09:00→21:26)
[2019-04-30] MEDS: POTASSIUM CHLORIDE 20 MEQ ERTAB PO SCH (09:00)
[2019-04-30] MEDS: ENOXAPARIN SODIUM 40 MG/0.4 ML SYRINGE SQ SCH (09:00)
[2019-04-30] MEDS: AMIODARONE HCL 200 MG TABLET PO SCH (09:00)
[2019-04-30] MEDS: ASPIRIN 81 MG EC TAB PO SCH (09:00)
[2019-04-30] MEDS: FUROSEMIDE 20 MG TABLET PO SCH (09:00)
[2019-04-30] MEDS ORDERED: MORPHINE SULFATE 4 MG/1ML SYG IVP PRN (10:45)
[2019-04-30] MEDS: INSULIN HUMULIN R 100 UNIT/ML 3ML SQ SCH ×4 (11:12→21:00)
[2019-04-30] MEDS: CEFTRIAXONE SODIUM 1 GM IVP SCH (11:18)
[2019-04-30] MEDS: MAGNESIUM 2GM PREMIX 50ML 50 ML IV PRN (11:18)
[2019-04-30 14:06] LABS: INR 1.14 (0.85-1.15); PROTHROMBIN TIME 11.9 SEC (9.6-11.6)
--- NOTE | 2019-04-30 14:53 | NUR ---
RDSCREEN - LOS X 8 Pt admitted for Epigastric pain. Hx of DM, HTN, HLD, CAD. Pt is s/p Lap Renae. Clear Liquid diet resumed. Recommend to advance diet as tolerated to 75gm CC, General Heart Healthy Diet. Pt LBM 04/28/19. Pt monitored labs: K 3.0, BUN 5, Glu 114, Mg 1.30, T. Bili 2.6, AST 160, ALT 167, Alk 330, Alb 2.4. RD to continue to monitor. Pt previously tolerated previous diet order. Please notify as additional nutrition concerns arise. Thank you. Addendum: 04/30/19 at [address] Amended: Links added.
[2019-04-30] MEDS: POTASSIUM CHLORIDE 20MEQ/100ML 100 ML IV PRN (15:01)
[2019-04-30] MEDS: LIDOCAINE HCL-MPF 1% 2ML VIAL IV PRN (15:02)
[2019-04-30 21:21] LABS: HEMATOCRIT 34.6 % (42-54); MEAN CORPUSCULAR HGB CONC 34.8 g/dL (32.0-36.0); MEAN CORPUSCULAR VOLUME 83.3 fL (79-99); PLATELET COUNT (AUTO) 237 K/uL (130-400); RED BLOOD CELL COUNT(AUTO) 4.16 MIL/uL (4.50-6.20); RED CELL DISTRIBUTION WIDTH 13.9 % (11.0-15.5); WHITE BLOOD COUNT (AUTO) 6.9 K/uL (4.8-10.8)
[2019-04-30] MEDS: ATORVASTATIN CALCIUM 20 MG TABLET PO SCH (21:26)
[2019-04-30 21:36] LABS: INR 1.11 (0.85-1.15); PARTIAL THROMBOPLASTIN TIME 26.1 SEC (26.3-35.5); PROTHROMBIN TIME 11.6 SEC (9.6-11.6)
[2019-05-01] VITALS (7 sets, daily range): BP systolic 129–160; BP diastolic 84–95
[2019-05-01] MEDS: SODIUM CHLORIDE 0.9% 1000ML 1,000 ML IV SCH ×2 (04:15→21:15)
[2019-05-01 04:48] LABS: HEMATOCRIT 32.6 % (42-54); MEAN CORPUSCULAR HEMOGLOBIN 29.1 pg (27.0-33.0); MEAN CORPUSCULAR HGB CONC 34.5 g/dL (32.0-36.0); MEAN CORPUSCULAR VOLUME 84.3 fL (79-99); NUCLEATED RED BLOOD CELLS 0.1 % (0.0-0.19); PLATELET COUNT (AUTO) 208 K/uL (130-400); RED BLOOD CELL COUNT(AUTO) 3.86 MIL/uL (4.50-6.20); RED CELL DISTRIBUTION WIDTH 13.8 % (11.0-15.5); WHITE BLOOD COUNT (AUTO) 6.4 K/uL (4.8-10.8)
[2019-05-01 04:52] LABS: CREATININE 0.8 mg/dL (0.5-1.5)
[2019-05-01 04:53] LABS: POTASSIUM 2.9 mmol/L (3.5-5.1)
[2019-05-01 04:58] LABS: INR 1.14 (0.85-1.15); PARTIAL THROMBOPLASTIN TIME 27.3 SEC (26.3-35.5); PROTHROMBIN TIME 11.9 SEC (9.6-11.6)
[2019-05-01] MEDS: PANTOPRAZOLE SODIUM 40 MG TABLET.DR PO SCH (06:04)
[2019-05-01] MEDS: POTASSIUM CHLORIDE 20MEQ/100ML 100 ML IV PRN (06:05)
[2019-05-01] MEDS: LIDOCAINE HCL-MPF 1% 2ML VIAL IV PRN (06:05)
[2019-05-01] MEDS: INSULIN HUMULIN R 100 UNIT/ML 3ML SQ SCH ×4 (06:05→21:00)
[2019-05-01] MEDS: POTASSIUM CHLORIDE 20 MEQ ERTAB PO PRN (06:08)
[2019-05-01] MEDS: AMIODARONE HCL 200 MG TABLET PO SCH (08:36)
[2019-05-01] MEDS: POTASSIUM CHLORIDE 20 MEQ ERTAB PO SCH ×3 (08:36→18:03)
[2019-05-01] MEDS: FUROSEMIDE 20 MG TABLET PO SCH (08:37)
[2019-05-01] MEDS: ASPIRIN 81 MG EC TAB PO SCH (08:37)
[2019-05-01] MEDS: METOPROLOL TARTRATE 50 MG TAB PO SCH ×2 (08:37→21:17)
[2019-05-01] MEDS: LISINOPRIL 5 MG TABLET PO SCH (08:37)
[2019-05-01] MEDS: ENOXAPARIN SODIUM 40 MG/0.4 ML SYRINGE SQ SCH (09:00)
[2019-05-01] MEDS: CEFTRIAXONE SODIUM 1 GM IVP SCH (11:07)
[2019-05-01 12:32] LABS: ALBUMIN 2.5 g/dL (3.5-5.0); BILIRUBIN,TOTAL 1.4 mg/dL (0.2-1.0); MAGNESIUM 1.5 mg/dL (1.80-2.40); TOTAL PROTEIN, SERUM 5.8 g/dL (6.0-8.3)
[2019-05-01] MEDS ORDERED: POTASSIUM CHLORIDE 20 MEQ/100 ML BAG IV SCH (14:30)
[2019-05-01] MEDS: ATORVASTATIN CALCIUM 20 MG TABLET PO SCH (21:17)
[2019-05-02 04:00] VITALS: BP 146/80
[2019-05-02 04:04] LABS: HEMATOCRIT 30.2 % (42-54); MEAN CORPUSCULAR HEMOGLOBIN 29.2 pg (27.0-33.0); MEAN CORPUSCULAR HGB CONC 34.7 g/dL (32.0-36.0); MEAN CORPUSCULAR VOLUME 84.2 fL (79-99); NUCLEATED RED BLOOD CELLS 0.1 % (0.0-0.19); PLATELET COUNT (AUTO) 190 K/uL (130-400); RED BLOOD CELL COUNT(AUTO) 3.58 MIL/uL (4.50-6.20); RED CELL DISTRIBUTION WIDTH 13.9 % (11.0-15.5); WHITE BLOOD COUNT (AUTO) 5.1 K/uL (4.8-10.8)
[2019-05-02 04:18] LABS: ALBUMIN 2.2 g/dL (3.5-5.0); BILIRUBIN,TOTAL 1.2 mg/dL (0.2-1.0); CREATININE 0.8 mg/dL (0.5-1.5); MAGNESIUM 1.8 mg/dL (1.80-2.40); TOTAL PROTEIN, SERUM 5.5 g/dL (6.0-8.3)
[2019-05-02] MEDS: INSULIN HUMULIN R 100 UNIT/ML 3ML SQ SCH ×4 (06:14→21:24)
[2019-05-02] MEDS: MAGNESIUM 2GM PREMIX 50ML 50 ML IV PRN (06:16)
[2019-05-02] MEDS: POTASSIUM CHLORIDE 20 MEQ ERTAB PO SCH (06:17)
[2019-05-02] MEDS: PANTOPRAZOLE SODIUM 40 MG TABLET.DR PO SCH (06:17)
[2019-05-02] MEDS: SODIUM CHLORIDE 0.9% 1000ML 1,000 ML IV SCH (06:55)
--- NOTE | 2019-05-02 07:30 | NUR ---
NOTE AAOX3. DENIES PAIN OR DISCOMFORT. S/P CHOLECYSTECTOMY 2 DAYS AGO. ADAMS DRAIN WITH SEROSANGUINOUS DRAINAGE NOTED. HE IS SUPPOSED TO HAVE PLAVIX RESTARTED TODAY FOR HE HAS BEEN ON LOVENOX AND OFF THE PLAVIX WHICH WAS INITIALLY STARTED A FEW WEEKS AGO POST CABG. NON/V TOLERATING HIS DIET WELL. NO OTHER PROBLEMS VOICED.
[2019-05-02 07:48] VITALS: BP 160/95
[2019-05-02] MEDS: LISINOPRIL 5 MG TABLET PO SCH (09:48)
[2019-05-02] MEDS: METOPROLOL TARTRATE 50 MG TAB PO SCH ×2 (09:48→19:58)
[2019-05-02] MEDS: FUROSEMIDE 20 MG TABLET PO SCH (09:48)
[2019-05-02] MEDS: AMIODARONE HCL 200 MG TABLET PO SCH (09:48)
[2019-05-02] MEDS: ASPIRIN 81 MG EC TAB PO SCH (09:48)
[2019-05-02] MEDS: POTASSIUM CHLORIDE 20 MEQ ERTAB PO PRN ×3 (09:50→18:17)
[2019-05-02] MEDS: CLOPIDOGREL BISULFATE 75 MG TAB PO SCH (09:55)
[2019-05-02] MEDS ORDERED: CLOPIDOGREL BISULFATE 75 MG TAB PO SCH (10:00)
[2019-05-02 11:14] VITALS: BP 139/84
[2019-05-02 16:22] VITALS: BP 138/85
--- NOTE | 2019-05-02 18:00 | NUR ---
NOTE HAS BEEN STABLE. NO DISTRESS. NO PAIN. J/P DRAIN WITH 220 CC FOR MY SHIFT. LABS ORDERED FOR AM.
[2019-05-02] MEDS: ATORVASTATIN CALCIUM 20 MG TABLET PO SCH (19:58)
[2019-05-02 20:03] VITALS: BP 129/87
[2019-05-02 23:51] VITALS: BP 128/76
[2019-05-03 04:16] VITALS: BP 124/76
[2019-05-03 04:16] LABS: HEMATOCRIT 33.3 % (42-54); MEAN CORPUSCULAR HEMOGLOBIN 28.8 pg (27.0-33.0); MEAN CORPUSCULAR HGB CONC 34.1 g/dL (32.0-36.0); MEAN CORPUSCULAR VOLUME 84.5 fL (79-99); NUCLEATED RED BLOOD CELLS 0.1 % (0.0-0.19); PLATELET COUNT (AUTO) 230 K/uL (130-400); RED BLOOD CELL COUNT(AUTO) 3.94 MIL/uL (4.50-6.20); RED CELL DISTRIBUTION WIDTH 14.2 % (11.0-15.5)
[2019-05-03 04:47] LABS: ALBUMIN 2.4 g/dL (3.5-5.0); BILIRUBIN,DIRECT 0.4 mg/dL (0.0-0.3); BILIRUBIN,TOTAL 0.9 mg/dL (0.2-1.0); CREATININE 0.9 mg/dL (0.5-1.5); POTASSIUM 3.4 mmol/L (3.5-5.1); TOTAL PROTEIN, SERUM 6.2 g/dL (6.0-8.3)
[2019-05-03] MEDS: POTASSIUM CHLORIDE 20 MEQ ERTAB PO PRN (06:02)
[2019-05-03] MEDS: INSULIN HUMULIN R 100 UNIT/ML 3ML SQ SCH ×3 (06:06→16:30)
[2019-05-03] MEDS: PANTOPRAZOLE SODIUM 40 MG TABLET.DR PO SCH (06:35)
[2019-05-03 07:35] VITALS: BP 127/87
[2019-05-03] MEDS: ASPIRIN 81 MG EC TAB PO SCH (08:55)
[2019-05-03] MEDS: CLOPIDOGREL BISULFATE 75 MG TAB PO SCH (08:55)
[2019-05-03] MEDS: POTASSIUM CHLORIDE 20 MEQ ERTAB PO SCH (08:56)
[2019-05-03] MEDS: FUROSEMIDE 20 MG TABLET PO SCH (08:56)
[2019-05-03] MEDS: LISINOPRIL 5 MG TABLET PO SCH (08:57)
[2019-05-03] MEDS: METOPROLOL TARTRATE 50 MG TAB PO SCH (08:57)
[2019-05-03] MEDS: AMIODARONE HCL 200 MG TABLET PO SCH (08:57)
[2019-05-03 11:12] VITALS: BP 147/81
[2019-05-03 17:03] VITALS: BP 127/80
--- NOTE | 2019-05-03 18:00 | NUR ---
DISCHARGE DISCHARGE INSTRUCTIONS PROVIDED TO PATIENT. TEACHBACK METHOD USED TO INTRUCT PATIENT AND HIS ADAMS DRAIN USE AND RECORD OUTPUT. PATIENT AND INSTRUCTED TO KEEP ADAMS DRAIN INSERTION SITE DRESSING DRY AND INTACT AND TO EMPTY ADAMS DRAIN WHEN HALF FULL. ABLE TO PERFORM RETURN DEMONSTRATION ON HOW TO DRAIN ADAMS DRAIN IN MEASURING DEVICE, RECORD DRAINAGE OUTPUT, AND TO REAPPLY ADAMS DRAIN SUCTION AFTER EMPTYING DRAIN. INFORMED PATIENT AND THAT ONE WEEK F/U APPTS WITH DR. CHOWDHURY AND DR. DERAS PENDING TO BE SCHEDULED. PATIENT INSTRUCTED TO CONTINUE ALL HOME MEDICATIONS. PATIENT VERBALIZED UNDERSTANDING OF DISCHARGE TEACHING. REMOVED 20G IV FROM LEFT FA, CATHETER TIP INTACT. PATIENT REPORTS NO PAIN OR DISCOMFORTS. PATIENT TO BED DRIVEN HOME BY HIS .
== END 2019-05-03 18:40 | disposition home health service (06) | DRG 263 ==
LOC: EDH 09:51 → EDHIP 09:52 → 4BH 16:37
PROVIDERS: ADMIT Family Medicine; ATTEND Family Medicine
PROC: 0F798ZZ Dilation of Common Bile Duct, Via Natural or Artificial Opening Endoscopic (ICD-10-PCS; 2019-04-28)
PROC: 30233K1 Transfusion of Nonautologous Frozen Plasma into Peripheral Vein, Percutaneous Approach (ICD-10-PCS; 2019-04-30)
PROC: 0FT44ZZ Resection of Gallbladder, Percutaneous Endoscopic Approach (ICD-10-PCS; principal; 2019-04-30 07:00)
DX: K80.42 Calculus of bile duct with acute cholecystitis without obstruction (principal); K85.90 Acute pancreatitis without necrosis or infection, unspecified; E83.42 Hypomagnesemia; E11.9 Type 2 diabetes mellitus without complications; I10 Essential (primary) hypertension; I25.10 Atherosclerotic heart disease of native coronary artery without angina pectoris; E87.6 Hypokalemia; E78.5 Hyperlipidemia, unspecified; Z95.1 Presence of aortocoronary bypass graft; Z79.4 Long term (current) use of insulin; Z79.01 Long term (current) use of anticoagulants; Z79.02 Long term (current) use of antithrombotics/antiplatelets; Z88.8 Allergy status to other drugs, medicaments and biological substances
CPT/HCPCS: 36415; 36430; 43262; 43264; 74018; 74181; 74330; 76700; 80048; 80053; 80076; 81001; 82150; 82550; 82948; 83690; 83735; 83874; 84484; 85025; 85027; 85610; 85730; 86850; 86900; 86901; 86927; 87040; 87088; 88304; 93005; A4606; C1769; C1773; G0378; J0330; J0696; J1100; J1170; J1650; J1815; J2001; J2175; J2250; J2370; J2405; J2704; J2710; J3010; J3475; J3480; J3490; J7030; P9017; Q9967

== ENCOUNTER 2022-02-10 19:31 | Emergency (ER) | payer MEDICAID ==
[~2022-02-10] VITALS: Ht 177.8 cm; Wt 114.3 kg
[~2022-02-10 19:31] MED LIST changes: -AMIO200T5 PO; +AMIO200T68 PO; -ASPI-1181 PO; +ASPI-1443 PO; -LISI-617 PO; +LISI5TAB21 PO; +SITA1TAB6 PO
[2022-02-10 19:33] VITALS: BP 130/85
[2022-02-10] MEDS ORDERED: NAPR-1180 PO (20:15)
[2022-02-10] MEDS ORDERED: KETOROLAC 60 MG VIAL (30MG/ML) IM ONE (20:30)
== END 2022-02-10 20:31 | disposition home or self-care (01) ==
LOC: EDH 19:31
DX: M72.2 Plantar fascial fibromatosis (principal); M21.42 Flat foot [pes planus] (acquired), left foot; M21.41 Flat foot [pes planus] (acquired), right foot; E66.01 Morbid (severe) obesity due to excess calories; Z68.36 Body mass index [BMI] 36.0-36.9, adult; E11.9 Type 2 diabetes mellitus without complications; I25.2 Old myocardial infarction; Z88.5 Allergy status to narcotic agent; Z88.8 Allergy status to other drugs, medicaments and biological substances; Z79.84 Long term (current) use of oral hypoglycemic drugs; Z79.899 Other long term (current) drug therapy; Z90.49 Acquired absence of other specified parts of digestive tract; Z98.890 Other specified postprocedural states
CPT/HCPCS: 99283; 96372; J1885